=== PATIENT | female | born 1975 | race Caucasian/White ===

== ENCOUNTER 2019-02-08 14:59 | Observation (INO) | payer SELFPAY ==
[2019-02-08 15:46] LABS: BASOPHILS # (AUTO) 0.1 10^3/uL (0.0-0.1); BASOPHILS % (AUTO) 0.8 %; EOSINOPHILS % (AUTO) 0.3 %; HGB - HEMOGLOBIN 11.6 g/dL (12.0-16.0); LYMPHOCYTES # (AUTO) 0.8 10^3/uL (1.5-3.5); LYMPHOCYTES % (AUTO) 12.3 %; MEAN CORPUSCULAR HGB CONC 30.4 g/dL (32.0-36.0); MEAN CORPUSCULAR VOLUME 88.6 fL (81.0-99.0); MEAN PLATELET VOLUME 8.9 fL (7.9-10.8); MONOCYTES # (AUTO) 0.7 10^3/uL (0.0-1.0); MONOCYTES % (AUTO) 10.4 %; NEUTROPHILS # (AUTO) 4.9 10^3/uL (1.5-6.6); NEUTROPHILS % (AUTO) 75.7 %; PLT - PLATELET COUNT 225 10^3/uL (130-450); RED CELL DISTRIBUTION WIDTH 15.3 % (12.0-15.0); WHITE BLOOD COUNT 6.4 x10^3/uL (4.8-10.8)
[2019-02-08 15:58] LABS: ALBUMIN 4.5 g/dL (3.2-5.5); ALBUMIN/GLOBULIN RATIO 1.3 (1.0-2.2); BILIRUBIN,TOTAL 1.3 mg/dL (0.2-1.0); CALCIUM 9.4 mg/dL (8.5-10.3); CREATININE 0.6 mg/dL (0.4-1.0)
[2019-02-08 16:01] LABS: MUDS CUTOFF CONCENTRATIONS CUTOFF CONC BELOW:
[2019-02-08 16:03] LABS: GLUCOSE, URINE (UA) NEGATIVE (NEGATIVE); KETONES,URINE (UA) >=80 mg/dL (NEGATIVE); LEUKOCYTE ESTERASE, URINE NEGATIVE (NEGATIVE); NITRITE,URINE NEGATIVE (NEGATIVE); OCCULT BLOOD,URINE SMALL (NEGATIVE); PROTEIN,URINE 100 mg/dL (NEGATIVE); UROBILINOGEN,URINE 1 (NORMAL) E.U./dL (NORMAL)
[2019-02-08 16:09] LABS: BILIRUBIN,URINE NEGATIVE (NEGATIVE); CLARITY,URINE HAZY (CLEAR); ICTOTEST,URINE NEGATIVE
[2019-02-08 16:10] LABS: HCG UR QUAL NEGATIVE
[2019-02-08 16:15] LABS: AMPHETAMINE SCREEN,URINE NEGATIVE (NEGATIVE); BACTERIA,URINE Few /HPF (None Seen); BENZODIAZEPINES SCREEN, URINE NEGATIVE (NEGATIVE); COCAINE SCREEN URINE NEGATIVE (NEGATIVE); METHADONE SCREEN, URINE NEGATIVE (NEGATIVE); METHAMPHETAMINES SCREEN, URINE NEGATIVE (NEGATIVE); MUCUS,URINE Moderate Strands; OPIATE SCREEN, URINE NEGATIVE (NEGATIVE); OXYCODONE SCREEN, URINE NEGATIVE (NEGATIVE); PROPOXYPHENE SCREEN, URINE NEGATIVE (NEGATIVE); SQUAMOUS EPITHELIAL CELL,UR MOD Squamous (<= Few); TRICYCLIC ANTIDEPRESSANT,URINE NEGATIVE (NEGATIVE)
[2019-02-08] MEDS ORDERED: SODIUM CHLORIDE 0.9% 1,000 ML IV ONE (16:15)
--- NOTE | 2019-02-08 16:15 | ED Physician Documentation ---
PD HPI ABD PAIN - Stated complaint Stated Complaint: LOSS OF APPETITE - Chief complaint Chief Complaint: Abd Pain - History obtained from History obtained from: Patient - History of Present Illness Timing - onset: Other (44yo woman with H/O gastric bypass in 2004 with 5 days of vomiting. Feels like everything she eats comes right back up. No nausea. No diarrhea or constipation but BMs are small with decreased flatus.) Review of Systems Ten Systems: 10 systems reviewed and negative Constitutional: denies: Fever, Chills Respiratory: denies: Dyspnea, Cough GI: reports: Nausea. 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 HEENT: Tonsil/Adenoidectomy - Present Medications Home Medications: Ambulatory Orders Medication Instructions Recorded Confirmed Ferrous Fumarate [Iron] 0 07/12/13 07/12/13 Promethazine [Phenergan] 25 - 50 mg PO Q6H PRN #10 tab 07/12/13 - Allergies Allergies/Adverse Reactions: Allergies Allergy/AdvReac Type Severity Reaction Status Date / Time No Known Drug Allergies Allergy Verified 07/12/13 03:17 - Social History Does the pt smoke?: No Smoking Status: Never smoker Does the pt drink ETOH?: No Does the pt have substance abuse?: No - Immunizations Immunizations are current?: Yes PD ED PE NORMAL - Vitals Vital signs reviewed: Yes - General General: Alert and oriented X 3, No acute distress - HEENT HEENT: PERRL, EOMI - Neck Neck: Supple, no meningeal sign, No bony TTP - Cardiac Cardiac: RRR, No murmur - Respiratory Respiratory: No respiratory distress, Clear bilaterally - Abdomen Abdomen: Soft, Non tender - Back Back: No CVA TTP, No spinal TTP - Derm Derm: Normal color, Warm and dry - Extremities Extremities: No edema, No calf tenderness / cord - Neuro Neuro: Alert and oriented X 3, Normal speech Results - Vitals Vitals: Vital Signs - 24 hr 02/08/19 02/08/19 15:06 16:56 Temperature 36.8 C Heart Rate 87 84 Respiratory 18 18 Rate Blood Pressure 149/94 H 174/91 H O2 Saturation 99 100 Oxygen O2 Source Room air - Labs Labs: Laboratory Tests 02/08/19 02/08/19 02/08/19 15:40 15:40 16:00 WBC 6.4 RBC 4.30 Hgb 11.6 L Hct 38.1 MCV 88.6 MCH 27.0 MCHC 30.4 L RDW 15.3 H Plt Count 225 MPV 8.9 Neut # (Auto) 4.9 Lymph # (Auto) 0.8 L [place] # (Auto) 0.7 Eos # (Auto) 0.0 Baso # (Auto) 0.1 Absolute Nucleated RBC 0.00 Nucleated RBC % 0.0 Sodium 141 Potassium 4.2 Chloride 108 Carbon Dioxide 18 L Anion Gap 15.0 H BUN 12 Creatinine 0.6 Estimated GFR (MDRD) 108 Glucose 101 H Calcium 9.4 Total Bilirubin 1.3 H AST 23 ALT 19 Alkaline Phosphatase 69 Total Protein 8.0 Albumin 4.5 Globulin 3.5 Albumin/Globulin Ratio 1.3 Lipase 24 Urine Color YELLOW Urine Clarity HAZY Urine pH 6.0 Ur Specific [place] >=1.030 H Urine Protein 100 H Urine Glucose (UA) NEGATIVE Urine Ketones >=80 H Urine Occult Blood SMALL H Urine Nitrite NEGATIVE Urine Bilirubin NEGATIVE Urine Urobilinogen 1 (NORMAL) Ur Leukocyte Esterase NEGATIVE Urine RBC 6-10 H Urine WBC 0-3 Ur Squamous Epith Cells MOD Squamous H Urine Bacteria Few Urine Mucus Moderate Strands Ur Microscopic Review INDICATED Urine Culture Comments NOT INDICATED Urine HCG, Qual Urine Opiates Screen NEGATIVE Ur Oxycodone Screen NEGATIVE Urine Methadone Screen NEGATIVE Ur Propoxyphene Screen NEGATIVE Ur Barbiturates Screen NEGATIVE Ur Tricyclics Screen NEGATIVE Ur Phencyclidine Scrn NEGATIVE Ur Amphetamine Screen NEGATIVE U Methamphetamines Scrn NEGATIVE U Benzodiazepines Scrn NEGATIVE Urine Cocaine Screen NEGATIVE U Cannabinoids Screen NEGATIVE 02/08/19 16:00 WBC RBC Hgb Hct MCV MCH MCHC RDW Plt Count MPV Neut # (Auto) Lymph # (Auto) [place] # (Auto) Eos # (Auto) Baso # (Auto) Absolute Nucleated RBC Nucleated RBC % Sodium Potassium Chloride Carbon Dioxide Anion Gap BUN Creatinine Estimated GFR (MDRD) Glucose Calcium Total Bilirubin AST ALT Alkaline Phosphatase Total Protein Albumin Globulin Albumin/Globulin Ratio Lipase Urine Color Urine Clarity Urine pH Ur Specific [place] >=1.030 H Urine Protein Urine Glucose (UA) Urine Ketones Urine Occult Blood Urine Nitrite Urine Bilirubin Urine Urobilinogen Ur Leukocyte Esterase Urine RBC Urine WBC Ur Squamous Epith Cells Urine Bacteria Urine Mucus Ur Microscopic Review Urine Culture Comments Urine HCG, Qual NEGATIVE Urine Opiates Screen Ur Oxycodone Screen Urine Methadone Screen Ur Propoxyphene Screen Ur Barbiturates Screen Ur Tricyclics Screen Ur Phencyclidine Scrn Ur Amphetamine Screen U Methamphetamines Scrn U Benzodiazepines Scrn Urine Cocaine Screen U Cannabinoids Screen - Rads (name of study) CT A/P Radiology: EMP read contemporaneously (Right ovarian cyst, intraluminal esophageal distal foreign body or lesion.) PD MEDICAL DECISION MAKING - ED course ED course: 44-year-old woman status post remote gastric bypass presents with intractable vomiting, but it is without associated nausea or pain. She appeared well and had a normal exam until he had her start drinking contrast for CT which point she really could not tolerate even a small amount of oral contrast and was throwing up in a pattern most consistent with a person who had an esophageal food impaction. CT as shown, concerning for some sort of obstructive lesion of the esophagus. She was given IV fluids and I spoke with the on-call surgeon, Dr. Woodard at 5:55 PM who will scope her tomorrow. Departure - Departure Disposition: ED Place in Observation Clinical Impression: Dehydration Condition: Stable
[2019-02-08] MEDS ORDERED: IOVERSOL 320 100 ML VIAL IVP ONE ×2 (16:29→17:29)
[2019-02-08] MEDS ORDERED: IOVERSOL 320 50 ML VIAL ONE (16:29)
[2019-02-08] MEDS ORDERED: METOCLOPRAMIDE 10 MG/2 ML VIAL IVP STA (16:47)
[2019-02-08] MEDS ORDERED: METOCLOPRAMIDE 10 MG/2 ML VIAL ONE (16:57)
[2019-02-08] MEDS ORDERED: ONDANSETRON 4 MG/2 ML VIAL IVP STA (17:01)
--- NOTE | 2019-02-08 17:49 | CT Report ---
Reason: IV and PO, vomiting, post remote gastric bypass Procedure Date: 02/08/2019 Accession Number: [id number] / [id number] Procedure: CT - Abdomen/Pelvis W CPT Code: FULL RESULT: EXAM: CT ABDOMEN AND PELVIS EXAM DATE: 02/08/2019 05:27 PM. CLINICAL HISTORY: IV and PO, vomiting, post remote gastric bypass. COMPARISONS: None. TECHNIQUE: Routine helical CT imaging was performed through the abdomen and pelvis. IV contrast: OPTI 320 90ML. Enteric contrast: No. Reconstructions: Coronal and sagittal. In accordance with CT protocol optimization, one or more of the following dose reduction techniques were utilized for this exam: automated exposure control, adjustment of mA and/or KV based on patient size, or use of iterative reconstructive technique. FINDINGS: Lung Bases: There is a rounded peripherally calcified focus in distal intrathoracic esophagus measuring 1.7 cm, postsurgical versus intraluminal foreign body. To be correlated clinically and endoscopy if further assessment required. Alternatively this could also represent an intraluminal mass lesion with peripheral oral contrast. Liver: Normal. No masses. Gallbladder/Bile Ducts: Unremarkable. Spleen: Normal. Pancreas: Normal. Adrenal Glands: Normal. Kidneys: Normal. No masses or hydronephrosis. Peritoneal Cavity/Bowel: Normal. No free fluid, free air or adenopathy. No masses or acute inflammatory process. The appendix is well visualized and normal. Pelvic Organs: Normal. The bladder and visualized pelvic organs are within normal limits. Hypodense lesions in the right ovary measuring 1.7 and 2 cm, likely physiological cysts. Vasculature: No aneurysms or other significant abnormality. Bones: No significant abnormality. Other: None. IMPRESSION: A Rounded peripherally calcified focus in distal intrathoracic esophagus measuring 1.7 cm, postsurgical versus intraluminal foreign body. To be correlated clinically and endoscopy if further assessment required. Alternatively this could also represent an intraluminal mass lesion with peripheral oral contrast. No bowel obstruction or inflammation. Normal appendix. Physiological cysts in right ovary measuring up to 1.7 cm. RADIA
[2019-02-08] MEDS ORDERED: DEXTROSE 5%-LACTATED RINGERS 1,000 ML IV SCH (18:00)
[2019-02-08] MEDS ORDERED: HYDROmorphone 1 MG/ML CARPUJECT IVP PRN (18:16)
[2019-02-08] MEDS ORDERED: PROMETHAZINE 25 MG/1 ML VIAL IM PRN (18:16)
[2019-02-08] MEDS ORDERED: SODIUM CHLORIDE FLUSH 0.9% 10 ML SYRINGE IVP PRN (18:16)
[2019-02-08] MEDS ORDERED: ONDANSETRON 4 MG/2 ML VIAL IVP PRN (18:16)
[2019-02-08 18:41] LABS: INR 1.2 (0.8-1.2); PT - PROTHROMBIN TIME 13.1 secs (9.9-12.6)
--- NOTE | 2019-02-08 19:45 | HISTORY & PHYSICAL EXAMINATION ---
Chief Complaint - Chief Complaint Chief Complaint: Vomiting History of Present Illness - Admitted From Admitted From:: Home - History Obtained From Records Reviewed: Yes History obtained from: Patient - History of Present Illness HPI Comment/Other: This is a 44 year old female with a past medical history significant for gastric bypass surgery in 2004 who presents from home complaining of emesis for the past five days. She reports being unable to keep down liquids or solid food over this period of time. Whenever she tries to eat/drink something, she vomits it up right away. Prior to this first occurring, she was eating and drinking without problems. She does not recall consuming anything that may have potentially obstructed her esophagus. She reports no fevers, chills, chest, dyspnea, GERD, odynophagia. She does not feel nauseous and is able to pass gas and have bowel movements. She decided to come in today as she has not been improving at home. She reports having an EGD completed when she was child but she can not recall where it was done. She believes it was done because something had obstructed her esophagus. In the emergency department, her vitals and labs were relatively unremarkable. She was unable to keep down food/liquids in the ED. She underwent a CT of the abdomen/pelvis but was also unable to keep down the oral contrast. The CT was concerning for a 1.7cm foreign body in the distal esophagus. The patient will be admitted under observation status for an EGD. 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 Her father's side does have a history of diabetes. This includes her paternal grandfather. She reports an uncle on her mothers side having lung cancer. Living arrangement: At home Social History Notes: She has lived on [facility] since 2005. She currently works two jobs. She does not smoke, consume alcohol, or use illicit drugs. - Substance History Use: Uses substance without health or social issues: NONE - POLST Patient has POLST: No Meds/Allgy - Home Medications Home Medications: Ambulatory Orders Medication Instructions Recorded Confirmed Ferrous Fumarate [Iron] 0 07/12/13 07/12/13 Promethazine [Phenergan] 25 - 50 mg PO Q6H PRN #10 tab 07/12/13 - Allergies Allergies/Adverse Reactions: Allergies Allergy/AdvReac Type Severity Reaction Status Date / Time No Known Drug Allergies Allergy Verified 07/12/13 03:17 Review of Systems - Constitutional Constitutional: denies: Fatigue, Fever, Chills, Weakness, Poor appetite - Cardiovascular Cariovascular: denies: Chest pain, Edema - Respiratory Respiratory: denies: SOB at rest, SOB with exertion - Gastrointestinal Gastrointestinal: reports: Vomiting. denies: Abdominal pain, Constipation, Diarrhea, Nausea, Reflux/heartburn, Bloating, Poor appetite - Genitourinary Genitourinary: denies: Dysuria, Frequency, Urgency, Hematuria - Musculoskeletal Musculoskeletal: denies: Back pain - Integumentary Integumentary: denies: Rash - Neurological Neurological: denies: General weakness, Focal weakness - All Other Systems All Other Systems: reports: Reviewed and negative Prior Level of Functionality: Independent with ADL's. Exam - Vital Signs Reviewed Vital Signs: Yes Vital Signs: Vital Signs x48h Temp Pulse Pulse Resp BP BP Pulse Ox 02/08/19 19:01 36.6 C 74 18 132/7 H 99 02/08/19 18:33 89 16 139/83 H 96 02/08/19 16:56 84 18 174/91 H 100 02/08/19 15:06 36.8 C 87 18 149/94 H 99 - Physical Exam General Appearance: positive: No acute distress, Alert Eyes Bilateral: positive: Normal inspection ENT: positive: ENT inspection nml, No signs of dehydration. negative: Pharyngeal erythema, Dry mucous membranes Neck: positive: Nml inspection Respiratory: positive: Chest non-tender, No respiratory distress, Breath sounds nml. negative: Wheezes, Rales, Rhonchi Cardiovascular: positive: Regular rate & rhythm, Systolic murmur. negative: Tachycardia, Bradycardia Abdomen: positive: Nml bowel sounds. negative: Non-tender, No distention, Tenderness, Guarding, Rebound Back: positive: Nml inspection. negative: CVA tenderness (R), CVA tenderness (L) Skin: positive: Color nml, No rash, Warm, Dry Extremities: positive: Non-tender, No pedal edema. negative: Pedal edema Neurologic/Psychiatric: positive: Oriented x3, Motor nml. negative: Disoriented to person, Disoriented to place, Disoriented to time Conclusion/Plan - Problem List (1) Distal esophageal obstruction due to foreign body Conclusion/Plan: She has now been unable to tolerate PO intake for the last 5 days. Does not appear clinically dehydrated. CT of the abdomen/pelvis revealed distal esophageal obstruction. Suspect this is likely due to foreign body ingestion although a mass cannot be ruled out. - Protonix IV - Zofran and Phenergan PRN - Dialudid PRN - IV hydration - NPO for EGD tomorrow with General Surgery - Suspect that she will be able to be discharged tomorrow after the EGD (2) History of gastric bypass Conclusion/Plan: She has a history of gastric bypass surgery back in 2004 in [place]. Currently not taking any multivitamins/supplements. She does not appear to have obvious nutritional deficiencies although she does have a mild normocytic anemia. Stable. - She will need outpatient follow up for postsurgical screening of nutrient deficiencies (3) Cardiac murmur Conclusion/Plan: She does have a systolic murmur on exam which she tells me she is aware of and has been worked up in the past. Stable. - Outpatient follow up - Lab Results Lab results reviewed: Yes Fish Bones: 02/08/19 15:40 02/08/19 15:40 - Diagnostic Imaging Results Diagnostic Imaging Results: positive: Final report reviewed Core Measures - Anticipated LOS I expect patient to be DC'd or transferred within 96 hours.: Yes - Issues Hospital Issues and Management Plan: Foreign body ingestion. Will require EGD. Unable to tolerate PO. - DVT/VTE - Prophylaxis VTE/DVT Device ordered at admit?: Yes VTE/DVT Prophylaxis med ordered at admit?: No
[2019-02-08] MEDS: SODIUM CHLORIDE 0.9% 1,000 ML IV SCH (20:01)
[2019-02-08] MEDS: PANTOPRAZOLE 40 MG VIAL IVP SCH (20:13)
[2019-02-08] MEDS: SODIUM CHLORIDE FLUSH 0.9% 10 ML SYRINGE IVP SCH (20:14)
[2019-02-09] MEDS: SODIUM CHLORIDE 0.9% 1,000 ML IV SCH (05:20)
[2019-02-09 05:36] LABS: CALCIUM 8.4 mg/dL (8.5-10.3); CREATININE 0.4 mg/dL (0.4-1.0)
[2019-02-09] MEDS: PANTOPRAZOLE 40 MG VIAL IVP SCH (06:13)
[2019-02-09] MEDS ORDERED: POLYETHYLENE GLYCOL 3350 17 GM PACKET PO SCH (09:00)
[2019-02-09] MEDS: SODIUM CHLORIDE FLUSH 0.9% 10 ML SYRINGE IVP SCH (09:11)
--- NOTE | 2019-02-09 12:41 | ANESTHESIA ---
Pre-Anesthesia VS, & Labs - Diagnosis foreign body in esophagus - Procedure EGD, removal of foreign body Vital Signs: Temp Pulse Resp BP Pulse Ox 36.7 C 66 18 114/71 100 02/09/19 08:37 02/09/19 08:37 02/09/19 08:37 02/09/19 08:37 02/09/19 08:37 Height 4 ft 11 in Weight (kg) 80 kg Body Mass Index 35.6 - NPO >8 hours - Is Patient ?: No - Lab Results Current Lab Results: Laboratory Tests 02/09/19 05:15: Sodium 141, Potassium 3.5, Chloride 111, Carbon Dioxide 19 L, Anion Gap 11.0, BUN 7, Creatinine 0.4, Estimated GFR (MDRD) 172, Glucose 84, Calcium 8.4 L 02/08/19 16:00: Urine Opiates Screen NEGATIVE, Ur Oxycodone Screen NEGATIVE, Urine Methadone Screen NEGATIVE, Ur Propoxyphene Screen NEGATIVE, Ur Barbiturates Screen NEGATIVE, Ur Tricyclics Screen NEGATIVE, Ur Phencyclidine Scrn NEGATIVE, Ur Amphetamine Screen NEGATIVE, U Methamphetamines Scrn NEGATIVE, U Benzodiazepines Scrn NEGATIVE, Urine Cocaine Screen NEGATIVE, U Cannabinoids Screen NEGATIVE 02/08/19 15:40: PT 13.1 H, INR 1.2 02/08/19 15:40: Sodium 141, Potassium 4.2, Chloride 108, Carbon Dioxide 18 L, Anion Gap 15.0 H, BUN 12, Creatinine 0.6, Estimated GFR (MDRD) 108, Glucose 101 H, Calcium 9.4, Total Bilirubin 1.3 H, AST 23, ALT 19, Alkaline Phosphatase 69, Total Protein 8.0, Albumin 4.5, Globulin 3.5, Albumin/Globulin Ratio 1.3, Lipase 24 02/08/19 15:40: WBC 6.4, RBC 4.30, Hgb 11.6 L, Hct 38.1, MCV 88.6, MCH 27.0, MCHC 30.4 L, RDW 15.3 H, Plt Count 225, MPV 8.9, Neut # (Auto) 4.9, Lymph # (Auto) 0.8 L, [place] # (Auto) 0.7, Eos # (Auto) 0.0, Baso # (Auto) 0.1, Absolute Nucleated RBC 0.00, Nucleated RBC % 0.0 Fish Bones: 02/08/19 15:40 02/09/19 05:15 Home Medications and Allergies Home Medications: Ambulatory Orders No Known Home Medications 02/09/19 Active Medications Hydromorphone HCl (Dilaudid Inj Carp) 1 mg IVP Q2HR PRN PRN Reason: Pain 8 to 10 Sodium Chloride (Normal Saline 0.9%) 1,000 mls @ 100 mls/hr IV .Q10H [facility] Last Admin: 02/09/19 05:20 Dose: 100 mls/hr Ondansetron HCl (Zofran Inj) 4 mg IVP Q6HR PRN PRN Reason: Nausea / Vomiting Pantoprazole Sodium (Protonix) 40 mg IVP QDAC [facility] Last Admin: 02/09/19 06:13 Dose: 40 mg Polyethylene Glycol (Miralax) 17 gm PO DAILY [facility] Last Admin: 02/09/19 09:35 Dose: Not Given Promethazine HCl (Phenergan Inj) 25 mg IM Q6HR PRN PRN Reason: Nausea / Vomiting Sodium Chloride (Normal Saline Flush 0.9%) 10 ml IVP PRN PRN PRN Reason: NEEDED PER PROVIDER ORDERS Last Admin: 02/09/19 06:13 Dose: 10 ml Sodium Chloride (Normal Saline Flush 0.9%) 10 ml IVP 0100,0900,1700 [facility] Last Admin: 02/09/19 09:11 Dose: Not Given No Known Home Medications 02/09/19 Allergies/Adverse Reactions: Allergies Allergy/AdvReac Type Severity Reaction Status Date / Time No Known Drug Allergies Allergy Verified 07/12/13 03:17 Anes History & Medical History - Anesthetic History Anesthesia Complications: reports: No previous complications - Medical History Cardiovascular: reports: None Pulmonary: reports: None Gastrointestinal: reports: None, Other (History of gastric bypass surgery) Urinary: reports: None Neuro: reports: None Musculoskeletal: reports: None Endocrine/Autoimmune: reports: None Blood Disorders: reports: None Skin: reports: None Smoking Status: Never smoker Other Past Medical History: esophageal strictures - Surgical History General: Gastric surgery Eyes Ears Nose Throat (EENT): Tonsil/Adenoidectomy Gynecologic: section Exam General: Alert Dental: WNL, Poor dentition, Other (two bottom missing) Mouth Opening: Greater than 4 Fingerbreadths Mallampati classification: II Thyromental Distance: greater than 6 cm Respiratory: Lungs clear Cardiovascular: Regular rate Mental/Cognitive Status: Alert/Oriented X3 Cognitive Status: Within normal limits Plan Anesthesia Type: General, MAC Consent for Procedure(s) Verified and Reviewed: Yes Code Status: Attempt Resuscitation ASA classification: 2-Mild systemic disease Is this case an emergency?: Yes
[2019-02-09] MEDS ORDERED: fentaNYL 100 MCG/2 ML VIAL IVP ONE (13:33)
[2019-02-09] MEDS ORDERED: PROPOFOL 200 MG/20 ML VIAL IVP ONE (13:33)
[2019-02-09] MEDS ORDERED: MIDAZOLAM 2 MG/2 ML VIAL IVP ONE (13:33)
[2019-02-09] MEDS ORDERED: LIDOCAINE-MPF 2% 5 ML VIAL IM ONE (13:33)
--- NOTE | 2019-02-09 13:33 | CONSULTATION NOTE ---
Referring Provider Name of Referring Provider:: Dr. Gorman Consult Date: 02/09/19 Chief Complaint - Chief Complaint Chief Complaint: dysphagia History of Present Illness - Admitted From Admitted From:: ER - History Obtained From Records Reviewed: yes History obtained from: pt, records Exam Limitations: none - History of Present Illness HPI Comment/Other: 44 yo female with onset 5 days ago of odynophagia and dysphagia, with inability to keep food or liquids down, with regurgitation of ingested food. She reports that 6 days ago while eating her evening meal (type of food pt can not recall) she sneezed while chewing/swallowing and she believes that may have precipitated the current sx. She presented to the ER yesterday evening when sx failed to resolve. She denies abdominal pain, change in bowel habits, melena, hematochezia, wt loss, fever, chills, respiratory sx. She points to the lower sternum as the area of discomfort. She reports a prior episode as a child requiring endosocopic removal of impacted chicken, but no other similar sx since. She notes no heartburn, dysphagia, ingestion, abd pain chronically. Neg FH GI tumors. She is s/p gastric bypass in 2004. Evaluation in ER yesterday evening was notable for a CT of abd/pelvis showing a 1.7 cm soft tissue density foreign body in the distal esophagus and a nl post gastric bypass anatomy. She was admitted for hydration and GI consultation. She reports no regurgitation of saliva since last night, but persistent lower sternal discomfort. 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 Her father's side does have a history of diabetes. This includes her paternal grandfather. She reports an uncle on her mothers side having lung cancer. Neg FH GI tumors. Living arrangement: At home Social History Notes: She has lived on [facility] since 2005. She currently works two jobs. She does not smoke, consume alcohol, or use illicit drugs. - Substance History Use: Uses substance without health or social issues: NONE - POLST Patient has POLST: No Meds/Allgy - Home Medications Home Medications: Ambulatory Orders Medication Instructions Recorded Confirmed No Known Home Medications 02/09/19 02/09/19 - Allergies Allergies/Adverse Reactions: Allergies Allergy/AdvReac Type Severity Reaction Status Date / Time No Known Drug Allergies Allergy Verified 07/12/13 03:17 Review of Systems - Constitutional Constitutional: denies: Fever, Chills, Weight gain, Weight loss - Gastrointestinal Gastrointestinal: denies: Abdominal pain, Abdominal distention, Constipation, Diarrhea, Change in bowel habits, Rectal bleeding, Black stools, Bloody stools, Nausea, Bile emesis, Krishan blood emesis, Coffee grounds emesis, Reflux/heartburn, Bloating - Hematologic/Lymphatic Hematologic/Lymphatic: denies: Blood clots, Bleeding tendencies - All Other Systems All Other Systems: reports: Reviewed and negative Exam - Vital Signs Reviewed Vital Signs: Yes Vital Signs: Vital Signs x48h Temp Pulse Resp BP Pulse Ox 02/09/19 08:37 36.7 C 66 18 114/71 100 - Physical Exam General Appearance: positive: No acute distress, Alert ENT: positive: ENT inspection nml, Dry mucous membranes, Other (poor dentition) Neck: positive: Nml inspection, Thyroid nml, No JVD, Trachea midline. negative: Thyromegaly, Lymphadenopathy (R), Lymphadenopathy (L) Respiratory: positive: Chest non-tender, No respiratory distress, Breath sounds nml. negative: Wheezes, Rales, Rhonchi Cardiovascular: positive: Regular rate & rhythm, No gallop, Systolic murmur Abdomen: positive: Non-tender, No organomegaly, Nml bowel sounds, No distention. negative: Guarding, Rebound, Hepatomegaly, Splenomegaly, Mass Skin: positive: Color nml, No rash, Warm, Dry. negative: Cyanosis Extremities: positive: No pedal edema. negative: Calf tenderness Neurologic/Psychiatric: positive: Oriented x3 Conclusion/Plan - Diagnosis Diagnosis: Food bolus foreign body obstruction of esophagus in pt with hx g astric bypass. Clinically she may have passed the body overnight. She has mild volume dehydration. - Plan Plan: To OR for EGD, removal of foreign body, possible biopsy or dilatation. Detailed PAR conf with pt and consent obtained. Thanks, - Lab Results Lab results reviewed: Yes Fish Bones: 02/08/19 15:40 02/09/19 05:15 - Diagnostic Imaging Results Diagnostic Imaging Results: positive: Final report reviewed, Read independently Diagnostic Imaging Results Comments: See HPI.
[2019-02-09] MEDS ORDERED: LIDO GARGLE 30 ML BOTTLE PO ONE (13:41)
[2019-02-09] MEDS ORDERED: LIDO GARGLE 30 ML BOTTLE ONE (13:42)
[2019-02-09] MEDS ORDERED: LACTATED RINGERS 1,000 ML IV ONE ×2 (13:43→13:59)
--- NOTE | 2019-02-09 16:01 | DISCHARGE SUMMARY ---
"Discharge Summary Admit Date: 02/08/19 Discharge Date: 02/09/19 Discharging Provider: Edelmira Rojo MD Primary Care Provider: Lila Woodard MD Code Status: Attempt Resuscitation Condition at Discharge: Stable Discharge Disposition: 01 Home, Self Care - DIAGNOSES Discharge Diagnoses with Status of Each Condition: 1. Unspecified foreign body in the esophagus esophagus causing obstruction 2. History of bariatric surgery 3. history of cardiac murmur - HPI History of Present Illness: HPI Comment/Other: This is a 44 year old female with a past medical history significant for gastric bypass surgery in 2004 who presents from home complaining of emesis for the past five days. She reports being unable to keep down liquids or solid food over this period of time. Whenever she tries to eat/drink something, she vomits it up right away. Prior to this first occurring, she was eating and drinking without problems. She does not recall consuming anything that may have potentially obstructed her esophagus. She reports no fevers, chills, chest, dyspnea, GERD, odynophagia. She does not feel nauseous and is able to pass gas and have bowel movements. She decided to come in today as she has not been improving at home. She reports having an EGD completed when she was child but she can not recall where it was done. She believes it was done because something had obstructed her esophagus. In the emergency department, her vitals and labs were relatively unremarkable. She was unable to keep down food/liquids in the ED. She underwent a CT of the abdomen/pelvis but was also unable to keep down the oral contrast. The CT was concerning for a 1.7cm foreign body in the distal esophagus. The patient will be admitted under observation status for an EGD. History - Past Medical History Cardiovascular: reports: None Respiratory: reports: None Neuro: reports: None Endocrine/Autoimmune: reports: None GI: reports: None, Other (History of gastric bypass surgery) SCRUMMASTER: reports: None : reports: None HEENT: reports: None Psych: reports: None Musculoskeletal: reports: None Derm: reports: None MRSA Hx?: No Other Past Medical History: esophageal strictures - CONSULTS | PROCEDURES Consultations: Dr. Shahab Guadarrama, general surgery Procedures: 1. abdomen pelvis CT. A rounded peripherally calcified focus in the distal intrathoracic esophagus measuring 1.7 cm, postsurgical versus intraluminal foreign body. 2. EGD done by Dr. Guadarrama February 09 without any foreign body seen. - HOSPITAL COURSE Hospital Course: She was placed in observation. Overnight no further episodes of emesis she was kept n.p.o. She was hydrated, nausea controlled with Zofran. In the morning she underwent an EGD that was uneventful with Dr. Guadarrama. The foreign body seen on CT was not seen. As such we feel she may have passed whenever object was there. She may return to full duties. No work restrictions. We have asked her not to drive for the next day since she received sedatives during her surgery. Temperature 37.6 pulse is 82 blood pressure 148/85 respirations 2200% on room air. Lungs are clear, regular rate and rhythm. Abdomen is soft and nontender. She is tolerating liquids at this time. She is asked to see Dr. Guadarrama in follow-up in the next 1 to 2 weeks. He has filled out discharge instructions on a separate dictation. - ALLERGIES Allergies/Adverse Reactions: Allergies Allergy/AdvReac Type Severity Reaction Status Date / Time No Known Drug Allergies Allergy Verified 07/12/13 03:17 - MEDICATIONS Home Medications: Ambulatory Orders Medication Instructions Recorded Confirmed No Known Home Medications 02/09/19 02/09/19 - LABS Result Diagrams: 02/08/19 15:40 02/09/19 05:15"
[2019-02-09 16:47] VITALS: BP 134/71
== END 2019-02-09 15:50 | disposition home or self-care (01) ==
LOC: ED 14:59 → MS2 18:16
PROVIDERS: ADMIT Internal Medicine; ATTEND Specialist
PROC: 0DB38ZX Excision of Lower Esophagus, Via Natural or Artificial Opening Endoscopic, Diagnostic (ICD-10-PCS; principal; 2019-02-09 16:30)
DX: T18.128A Food in esophagus causing other injury, initial encounter (principal); K22.10 Ulcer of esophagus without bleeding; E86.0 Dehydration; R11.10 Vomiting, unspecified; D64.9 Anemia, unspecified; R01.1 Cardiac murmur, unspecified; Z98.84 Bariatric surgery status; Z87.19 Personal history of other diseases of the digestive system
CPT/HCPCS: 36415; 43239; 74177; 80048; 80053; 81001; 81025; 83690; 85025; 85610; 96361; 96374; 96375; 99284; 99285; A9270; G0378; J2765; J7120; Q9967; 80306; 81003; 87086

== ENCOUNTER 2021-01-25 19:44 | Inpatient (IN) | payer MEDICAID ==
[2021-01-25 20:11] LABS: BASOPHILS # (AUTO) 0.1 10^3/uL (0.0-0.1); BASOPHILS % (AUTO) 1.5 %; EOSINOPHILS # (AUTO) 0.1 10^3/uL (0.0-0.7); EOSINOPHILS % (AUTO) 2.4 %; HCT - HEMATOCRIT 26.2 % (37.0-47.0); HGB - HEMOGLOBIN 7.7 g/dL (12.0-16.0); LYMPHOCYTES # (AUTO) 1.1 10^3/uL (1.5-3.5); LYMPHOCYTES % (AUTO) 17.8 %; MEAN CORPUSCULAR HEMOGLOBIN 23.5 pg (27.0-31.0); MEAN CORPUSCULAR HGB CONC 29.4 g/dL (32.0-36.0); MEAN CORPUSCULAR VOLUME 79.9 fL (81.0-99.0); MONOCYTES # (AUTO) 0.6 10^3/uL (0.0-1.0); NEUTROPHILS % (AUTO) 68.1 %; PLT - PLATELET COUNT 176 10^3/uL (130-450); RED BLOOD COUNT 3.28 10^6/uL (4.20-5.40); RED CELL DISTRIBUTION WIDTH 20.2 % (12.0-15.0); WHITE BLOOD COUNT 5.9 x10^3/uL (4.8-10.8)
[2021-01-25 20:12] LABS: BILIRUBIN,URINE NEGATIVE (NEGATIVE); GLUCOSE, URINE (UA) NEGATIVE (NEGATIVE); KETONES,URINE (UA) >=80 mg/dL (NEGATIVE); LEUKOCYTE ESTERASE, URINE NEGATIVE (NEGATIVE); NITRITE,URINE NEGATIVE (NEGATIVE); OCCULT BLOOD,URINE SMALL (NEGATIVE); PROTEIN,URINE NEGATIVE (NEGATIVE); UROBILINOGEN,URINE 1 (NORMAL) E.U./dL (NORMAL)
[2021-01-25 20:14] LABS: CLARITY,URINE HAZY (CLEAR)
[2021-01-25 20:23] LABS: ALBUMIN 3.9 g/dL (3.2-5.5); ALBUMIN/GLOBULIN RATIO 1.2 (1.0-2.2); BILIRUBIN,TOTAL 1.1 mg/dL (0.2-1.0); CALCIUM 8.4 mg/dL (8.5-10.3); CREATININE 0.4 mg/dL (0.4-1.0); POTASSIUM 3.8 mmol/L (3.5-5.0); TOTAL PROTEIN 7.2 g/dL (6.7-8.2)
[2021-01-25 20:26] LABS: BACTERIA,URINE Few /HPF (None Seen); RBC,URINE 0-5 /HPF (0-5); SQUAMOUS EPITHELIAL CELL,UR MOD Squamous (<= Few); WBC,URINE 0-3 /HPF (0-5)
[2021-01-25 20:27] LABS: MUCUS,URINE Few Strands
[2021-01-25] MEDS ORDERED: GLUCAGON 1 MG/ML VIAL IVP STA (20:37)
[2021-01-25] MEDS ORDERED: ONDANSETRON 4 MG/2 ML VIAL IVP STA (20:42)
[2021-01-25] MEDS ORDERED: IOVERSOL 320 100 ML VIAL IVP ONE ×2 (20:42→21:47)
--- NOTE | 2021-01-25 20:42 | ED Physician Documentation ---
History of Present Illness - Stated complaint Stated Complaint: VOMITING - Chief complaint Chief Complaint: Abd Pain - Additonal information Additional information: 46-year-old male presents the emergency department for evaluation of uncontr olled nausea and vomiting. She has a remote history of gastric bypass and reports that this morning when she woke up she has been very nauseated and has been unable to keep anything down. She had a history of similar in 2019 for which she was admitted and had an upper EGD done. Patient reports to me that she is told she has esophageal strictures though she has had no long-term maintenance or management of it. Patient denies abdominal pain or fevers. But she states she is unable to tolerate sips of even water. Review of Systems Constitutional: denies: Fever Eyes: reports: Reviewed and negative Ears: reports: Loss of hearing Nose: reports: Reviewed and negative Throat: reports: Reviewed and negative Cardiac: reports: Reviewed and negative Respiratory: reports: Reviewed and negative GI: reports: Nausea, Vomiting. 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 : None HEENT: None Psych: None Musculoskeletal: None Derm: None - Past Surgical History Past Surgical History: Yes General: Gastric surgery (gastric bypass 2004), EGD (as child with removal of food bolus foreign body) /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 HEENT: Myringotomy (tubes), Tonsil/Adenoidectomy - Present Medications Home Medications: Ambulatory Orders Medication Instructions Recorded Confirmed No Known Home Medications 02/09/19 02/09/19 - Allergies Allergies/Adverse Reactions: Allergies Allergy/AdvReac Type Severity Reaction Status Date / Time No Known Drug Allergies Allergy Verified 01/25/21 19:51 - Social History Does the pt smoke?: No Smoking Status: Never smoker Does the pt drink ETOH?: No Does the pt have substance abuse?: No - Immunizations Immunizations are current?: Yes - POLST Patient has POLST: No PD ED PE EXPANDED - General General: Alert, No acute distress - Cardiac Cardiac: Regular Rate, Radial strong equal, Pedal strong equal. No: Murmur Present - Respiratory Respiratory: Clear to ausultation karon. No: Distress, Labored - Abdomen Abdomen: Normal Bowel sounds. No: Tender to palpation - Derm Derm: Normal color, Warm and dry - Extremities Extremities: Normal. No: Deformity, Tenderness - Neuro Neuro: Alert and Oriented X 3, CNII-XII intact - GCS Eye Opening: Spontaneous Motor: Obeys Commands Verbal: Oriented Total: 15 Results - Vitals Vitals: Vital Signs - 24 hr 01/25/21 01/25/21 19:48 20:21 Temperature 36.9 C 36.8 C Heart Rate 90 79 Respiratory 18 16 Rate Blood Pressure 143/70 H 118/93 H O2 Saturation 100 98 Oxygen O2 Source Room air - Labs Labs: Laboratory Tests 01/25/21 01/25/21 01/25/21 19:54 20:05 20:05 WBC 5.9 RBC 3.28 L Hgb 7.7 L Hct 26.2 L MCV 79.9 L MCH 23.5 L MCHC 29.4 L RDW 20.2 H Plt Count 176 MPV 10.0 Neut # (Auto) 4.0 Lymph # (Auto) 1.1 L [place] # (Auto) 0.6 Eos # (Auto) 0.1 Baso # (Auto) 0.1 Absolute Nucleated RBC 0.00 Nucleated RBC % 0.0 PT INR Sodium 135 Potassium 3.8 Chloride 101 Carbon Dioxide 25 Anion Gap 9.0 BUN 8 Creatinine 0.4 Estimated GFR (MDRD) 170 Glucose 99 Calcium 8.4 L Total Bilirubin 1.1 H AST 21 ALT 12 Alkaline Phosphatase 63 Total Protein 7.2 Albumin 3.9 Globulin 3.3 Albumin/Globulin Ratio 1.2 Lipase 20 L Urine Color YELLOW Urine Clarity HAZY Urine pH 6.0 Ur Specific [place] >=1.030 H Urine Protein NEGATIVE Urine Glucose (UA) NEGATIVE Urine Ketones >=80 H Urine Occult Blood SMALL H Urine Nitrite NEGATIVE Urine Bilirubin NEGATIVE Urine Urobilinogen 1 (NORMAL) Ur Leukocyte Esterase NEGATIVE Urine RBC 0-5 Urine WBC 0-3 Ur Squamous Epith Cells MOD Squamous H Urine Bacteria Few Urine Mucus Few Strands Ur Microscopic Review INDICATED Urine Culture Comments NOT INDICATED Nasal Adenovirus (PCR) Nasal B. parapertussis DNA (PCR) Nasal Coronavir 229E PCR Nasal Coronavir HKU1 PCR Nasal Coronavir NL63 PCR Nasal Coronavir OC43 PCR Nasal Enterovir/Rhinovir PCR Nasal Influenza B PCR Nasal Influenza A PCR Nasal Parainfluen 1 PCR Nasal Parainfluen 2 PCR Nasal Parainfluen 3 PCR Nasal Parainfluen 4 PCR Nasal RSV (PCR) Nasal B.pertussis DNA PCR Nasal C.pneumoniae (PCR) [place] Human Metapneumo PCR Nasal M.pneumoniae (PCR) Nasal SARS-CoV-2 (PCR) 01/25/21 01/25/21 21:15 21:16 WBC RBC Hgb Hct MCV MCH MCHC RDW Plt Count MPV Neut # (Auto) Lymph # (Auto) [place] # (Auto) Eos # (Auto) Baso # (Auto) Absolute Nucleated RBC Nucleated RBC % PT 12.5 INR 1.1 Sodium Potassium Chloride Carbon Dioxide Anion Gap BUN Creatinine Estimated GFR (MDRD) Glucose Calcium Total Bilirubin AST ALT Alkaline Phosphatase Total Protein Albumin Globulin Albumin/Globulin Ratio Lipase Urine Color Urine Clarity Urine pH Ur Specific [place] Urine Protein Urine Glucose (UA) Urine Ketones Urine Occult Blood Urine Nitrite Urine Bilirubin Urine Urobilinogen Ur Leukocyte Esterase Urine RBC Urine WBC Ur Squamous Epith Cells Urine Bacteria Urine Mucus Ur Microscopic Review Urine Culture Comments Nasal Adenovirus (PCR) NOT DETECTED Nasal B. parapertussis DNA (PCR) NOT DETECTED Nasal Coronavir 229E PCR NOT DETECTED Nasal Coronavir HKU1 PCR NOT DETECTED Nasal Coronavir NL63 PCR NOT DETECTED Nasal Coronavir OC43 PCR NOT DETECTED Nasal Enterovir/Rhinovir PCR NOT DETECTED Nasal Influenza B PCR NOT DETECTED Nasal Influenza A PCR NOT DETECTED Nasal Parainfluen 1 PCR NOT DETECTED Nasal Parainfluen 2 PCR NOT DETECTED Nasal Parainfluen 3 PCR NOT DETECTED Nasal Parainfluen 4 PCR NOT DETECTED Nasal RSV (PCR) NOT DETECTED Nasal B.pertussis DNA PCR NOT DETECTED Nasal C.pneumoniae (PCR) NOT DETECTED [place] Human Metapneumo PCR NOT DETECTED Nasal M.pneumoniae (PCR) NOT DETECTED Nasal SARS-CoV-2 (PCR) NOT DETECTED - Rads (name of study) ct abd/pel Radiology: Final report received, See rad report PD MEDICAL DECISION MAKING - ED course Complexity details: reviewed results, re-evaluated patient, considered differential, d/w multi site leasing consultant (Ta) ED course: 46-year-old female presents emergency department for evaluation of uncontrolled nausea and vomiting. She reports anytime she attempts to drink even small bits of liquids she feels some discomfort in her mid chest and she immediately vomits it up. She is concerned that she could have a return of esophageal stricture. She had a similar presentation in 2019. CT of the abdomen without obvious stricture, however pt was unable to tolerate po contrast thus an esophogram could not be completed Today here in the emergency department she is unable to tolerate sips of clear liquids. I did give her 2 mg of glucagon and she was unable to tolerate the oral contrast. Given history of similar I have called Dr. Chappell who agrees that the patient likely needs an EGD he is asking the hospitalist to admit. I have spoken with Dr. Lindsay and she is agreeable to admit the patient. We did discuss the significant anemia. Tomorrow's scoping may also include a lower colonoscopy. Pt is agreed to admit for observation and further treatment Departure - Departure Disposition: ED Place in Observation Clinical Impression: Vomiting Qualifiers: Vomiting type: unspecified Vomiting Intractability: intractable Nausea presence: with nausea Qualified Code(s): R11.2 - Nausea with vomiting, unspecified Anemia Qualifiers: Anemia type: unspecified type Qualified Code(s): D64.9 - Anemia, unspecified Discharge Date/Time: 01/25/21 22:03
[2021-01-25] MEDS ORDERED: SODIUM CHLORIDE 0.9% 1,000 ML IV STA (20:43)
[2021-01-25] MEDS ORDERED: IOPAMIDOL-300 50 ML VIAL ONE (20:43)
[2021-01-25 21:27] LABS: INR 1.1 (0.8-1.2); PT - PROTHROMBIN TIME 12.5 secs (9.9-12.6)
[2021-01-25] MEDS ORDERED: ONDANSETRON 4 MG/2 ML VIAL IVP PRN (21:40)
[2021-01-25] MEDS ORDERED: PROCHLORPERAZINE 10 MG/2 ML VIAL IVP PRN (21:40)
[2021-01-25] MEDS ORDERED: IOPAMIDOL-300 50 ML VIAL PO ONE (21:49)
--- NOTE | 2021-01-25 21:49 | HISTORY & PHYSICAL EXAMINATION ---
Chief Complaint - Chief Complaint Chief Complaint: N/V History of Present Illness - Admitted From Admitted From:: ED - History Obtained From History obtained from: ED provider and patient - History of Present Illness HPI Comment/Other: This is a 46-year-old white female with a history of heart murmur since , gastric bypass surgery done in 2004, she presented here in 2019 for distal esophageal obstruction with symptoms of nausea and vomiting and when EGD was done then, only an esophageal erosion was found. There is also a remote history of having chicken impacted in her esophagus needing retrieval when she was a young child. The patient presents to the emergency room with complaints of 1 day of lower sternal and epigastric pain, nausea and vomiting, she cannot even keep water down. She says the symptoms are like she had in 2019 requiring the EGD. The patient is being admitted to Observation for IV fluids, antiemetics, follow-up of CBC which is showing a marked anemia and to undergo an EGD, and a possible colonoscopy as well. 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 Her father's side does have a history of diabetes. This includes her paternal grandfather. She reports an uncle on her mothers side having lung cancer. Neg FH GI tumors. Living arrangement: At home Social History Notes: She has lived on [facility] since 2005. She does not smoke, consume alcohol, or use illicit drugs, specifically no Meth. - Substance History Use: Uses substance without health or social issues: NONE - POLST Patient has POLST: No Meds/Allgy - Home Medications Home Medications: Ambulatory Orders Medication Instructions Recorded Confirmed No Known Home Medications 02/09/19 02/09/19 - Allergies Allergies/Adverse Reactions: Allergies Allergy/AdvReac Type Severity Reaction Status Date / Time No Known Drug Allergies Allergy Verified 01/25/21 19:51 Review of Systems - Gastrointestinal Gastrointestinal: reports: Abdominal pain, Nausea, Vomiting - All Other Systems All Other Systems: reports: Reviewed and negative Exam - Vital Signs Vital Signs: Vital Signs x48h Temp Pulse Resp BP Pulse Ox 01/25/21 20:21 36.8 C 79 16 118/93 H 98 01/25/21 19:48 36.9 C 90 18 143/70 H 100 - Physical Exam General Appearance: positive: No acute distress, Alert Eyes Bilateral: positive: Normal inspection, EOMI ENT: positive: No signs of dehydration, Other (Many broken teeth in the lower jaw, upper jaw is edentulous) Neck: positive: Nml inspection, No JVD Respiratory: positive: No respiratory distress, Breath sounds nml Cardiovascular: positive: Regular rate & rhythm, Systolic murmur (3/6 at base) Abdomen: positive: Non-tender (No guarding or rebound), Nml bowel sounds, No distention Skin: positive: Warm, Dry, Pallor Extremities: positive: Non-tender, No pedal edema Neurologic/Psychiatric: positive: Oriented x3 (Non-focal) Conclusion/Plan - Problem List (1) N&V (nausea and vomiting) Conclusion/Plan: She will be started on IV fluids at 125 cc an hour. N.p.o. ordered except sips and chips only Antiemetics will be given as needed Source of the problem will be evaluated with an EGD in the morning (2) Odynophagia Conclusion/Plan: The presentation is similar to 2019 when imaging then showed a distal esophageal obstruction but the EGD in the next day showed just an erosion, presumably the object had passed. The plan is for EGD by general surgery to be done tomorrow. The ED provider already called the general surgeon on-call. (3) Anemia Conclusion/Plan: She has significant Al low hemoglobin at 7.6. The general surgeon may also therefore perform colonoscopy. We will order guaiac of her stools. Order anemia work-up including B12, folate levels and check iron stores. Will start empiric Protonix IV twice daily Will follow her CBC daily, transfuse if hemoglobin is under 7. Qualifiers: Anemia type: unspecified type Qualified Code(s): D64.9 - Anemia, unspecified (4) Cardiac murmur Conclusion/Plan: Clinically this sounds like aortic stenosis and she may have been born with a bicuspid valve. She does not know the exact diagnosis of her murmur unfortunately. She gets echoes every year, she states the last was done just 7 months ago in May 2020 and everything is stable. There is no indication for obtaining an Echocardiogram at this time. (5) History of gastric bypass Conclusion/Plan: As per history. The evaluation in 2019 showed that she had stable anatomy as expected after a gastric bypass. - Lab Results Fish Bones: 01/25/21 20:05 01/25/21 20:05 - Diagnostic Imaging Results Diagnostic Imaging Results: positive: Final report reviewed
--- NOTE | 2021-01-25 22:06 | CT Report ---
PROCEDURE: Abdomen/Pelvis W INDICATIONS: ? esophageal stricture CONTRAST: IV CONTRAST: Optiray 320 ml: 100 PO CONTRAST: *NO PO CONTRAST TECHNIQUE: After the administration of nonionic contrast, 5 mm thick sections acquired from the diaphragms to th e symphysis. 5 mm thick coronal and sagittal reformats were acquired. For radiation dose reduction, the following was used: automated exposure control, adjustment of mA and/or kV according to patient size. COMPARISON: 02/08/2019 CT scanning.. FINDINGS: Image quality: Excellent. ABDOMEN: Lung bases: Lung bases are clear. Heart size is normal. Solid organs: Liver and spleen are normal in size and enhancement. Gallbladder appears normal Bili wendie system is non dilated. Pancreas enhances normally. No adrenal nodules. Kidneys demonstrate nor mal size and enhancement, without hydronephrosis. Peritoneum and bowel: Bowel loops demonstrate normal wall thickness and caliber. No free fluid or a ir. Nodes and vessels: No retroperitoneal or mesenteric adenopathy by size criteria. Aorta and inferior vena cava are normal in size. Miscellaneous: There is a periumbilical ventral eventration with a peritoneal membrane covering the a akbar of eventration, indicating absence of central true hernia as cause of the protuberance of small b owel and colonic loops into the anterior body wall seen on CT series 3 image 53. There is no sign of associated incarceration or strangulation. PELVIS: Genitourinary: Bladder wall thickness is normal. What appeared to be moderate-sized bilateral ovari an cysts are present, measuring up to 8 and 3.6 cm and 3.5 cm on the left at the adnexa. Miscellaneous: No inguinal hernias or adenopathy. Bones: No suspicious bony lesions. No vertebral body compression fractures. IMPRESSION: 1. No sign of esophageal dilatation or mass. No sign of esophageal stricture but please note that the study is optimized for abdomen/pelvis evaluation, not the chest. Dedicated esophagram is recommended if clinically indicated. 2. Relatively large midline periumbilical eventration, containing large and small bowel, without evid ence of incarceration or strangulation. The presence of eventration includes a peritoneal membrane co vering the area of concern, and this does not represent a true hernia with visceral herniation into t he body wall fat. 3. Bilateral moderate and moderately large ovarian/adnexal cystic masses. Suspect that these likely a re benign by appearance, but pelvic ultrasound to assess for further characterization of these struct ures is recommended. There is no evidence of ovarian torsion based on this study. Reviewed by: Raghavendra West MD on 01/25/2021 10:04 PM PDT Approved by: Raghavendra West MD on 01/25/2021 10:04 PM PDT Station ID: [id number]
[2021-01-25 22:10] LABS: B. PARAPERTUSSIS- RESP PCR PAN NOT DETECTED; B. PERTUSSIS- RESP PCR PANEL NOT DETECTED; C. PNEUMONIAE- RESP PCR PANEL NOT DETECTED; CORONAVIRUS 229E-RESP PCR NOT DETECTED; CORONAVIRUS HKU1-RESP PCR NOT DETECTED; CORONAVIRUS NL63-RESP PCR NOT DETECTED; CORONAVIRUS OC43-RESP PCR NOT DETECTED; HUMAN METAPNEUMOVIRUS NOT DETECTED; INFLUENZA A- RESP PCR PANEL NOT DETECTED; INFLUENZA B - RESP PCR PANEL NOT DETECTED; M. PNEUMONIAE- RESP PCR PANEL NOT DETECTED; PARAINFLUENZA VIRUS 1 NOT DETECTED; PARAINFLUENZA VIRUS 2 NOT DETECTED; PARAINFLUENZA VIRUS 3 NOT DETECTED; PARAINFLUENZA VIRUS 4 NOT DETECTED; RHINOVIRUS/ENTEROVIRUS NOT DETECTED; RSV- RESP PCR PANEL NOT DETECTED; SARS-CoV-2 -RESP PCR PANEL NOT DETECTED
[2021-01-25] MEDS: PANTOPRAZOLE 40 MG VIAL IV SCH (22:58)
[2021-01-25] MEDS: D5NS W/20 MEQ KCL 1,000 ML IV SCH (22:58)
[2021-01-25] MEDS: SODIUM CHLORIDE FLUSH 0.9% 10 ML SYRINGE IVP SCH (23:23)
[2021-01-26 05:17] LABS: HCT - HEMATOCRIT 26.5 % (37.0-47.0); HGB - HEMOGLOBIN 7.7 g/dL (12.0-16.0); MEAN CORPUSCULAR HEMOGLOBIN 23.5 pg (27.0-31.0); MEAN CORPUSCULAR HGB CONC 29.1 g/dL (32.0-36.0); MEAN CORPUSCULAR VOLUME 80.8 fL (81.0-99.0); MEAN PLATELET VOLUME 10.8 fL (7.9-10.8); RED BLOOD COUNT 3.28 10^6/uL (4.20-5.40); RED CELL DISTRIBUTION WIDTH 20.4 % (12.0-15.0); WHITE BLOOD COUNT 5.4 x10^3/uL (4.8-10.8)
[2021-01-26 05:33] LABS: CALCIUM 8.2 mg/dL (8.5-10.3); CREATININE 0.4 mg/dL (0.4-1.0); MAGNESIUM 1.9 mg/dL (1.7-2.8); POTASSIUM 3.7 mmol/L (3.5-5.0)
[2021-01-26 05:54] LABS: FOLATE 15.13 ng/mL (5.90 - >24.8)
[2021-01-26] MEDS ORDERED: CYANOCOBALAMIN 1,000 MCG/ML VIAL IM ONE (07:36)
[2021-01-26] MEDS ORDERED: FERROUS GLUCONATE 324 MG TABLET PO SCH (08:00)
[2021-01-26] MEDS: D5NS W/20 MEQ KCL 1,000 ML IV SCH (08:30)
[2021-01-26] MEDS: SODIUM CHLORIDE FLUSH 0.9% 10 ML SYRINGE IVP SCH ×5 (08:36→23:16)
[2021-01-26] MEDS ORDERED: FERRIC GLUCONATE 125 MG in SODIUM CHLORIDE 0.9% 100ML 100 ML IV ONE ×2 (10:00→12:00)
[2021-01-26] MEDS: PANTOPRAZOLE 40 MG VIAL IV SCH ×2 (10:55→21:11)
--- NOTE | 2021-01-26 13:01 | SURGERY HX AND PHYSICAL(T) ---
Surgical History & Physical - Chief Complaint/HPI Chief Complaint: Dysphagia and Anemia History of Present Illness: 46-year-old female presenting for dysphagia and anemia. Recurrent difficulty swallowing with necessary upper endoscopy historically. Progressive dysphagia recently. Notable past surgical history to include laparoscopic bariatric surgery with necessary urgent reexploratory laparotomy. Patient report change in bowel function, questionable bleeding per rectum, and also denies reflux associated symptoms. No history of heart attack or stroke. Patient takes no systemic anticoagulation. Endoscopic history includes never. - PMH/PSH/Social Hx Does the pt have a hx of MRSA?: No Neurological History: None Eyes, Ears, Nose, Throat: None Cardiovascular: Murmur (She had this from , and is followed by carton filling machine operator in [place] once a year) Respiratory: None Skin: None Endocrine/Autoimmune: None Gastrointestinal: Other (History of gastric bypass surgery) ALTERATIONS SEWER: None Urinary: None Musculoskeletal: None Blood Disorders: None Psychiatric: None General: Gastric surgery (gastric bypass 2004), EGD (as child with removal of food bolus foreign body) Eyes Ears Nose Throat (EENT): Myringotomy (tubes), Tonsil/Adenoidectomy Smoking Status: Never smoker Does the pt drink ETOH?: No Does the pt have substance abuse?: No - Home Meds and Allergies Home Medications: No Known Home Medications 02/09/19 Allergies/Adverse Reactions: Allergies Allergy/AdvReac Type Severity Reaction Status Date / Time No Known Drug Allergies Allergy Verified 01/25/21 19:51 - Review of Systems Constitutional: Malaise Gastrointestinal: Nausea, Difficulty swallowing, Constipation - Vital Signs Heart Rate: 87 Blood Pressure: 118/93 Temperature: 36.7 C Respiratory Rate: 18 O2 Saturation: 100 Weight (kg): 84 kg Height: 1.5 m - Physical Exam Comments/Other: General Appearance: positive: No acute distress Eyes Bilateral: positive: Normal inspection ENT: positive: ENT inspection nml Neck: positive: Nml inspection Respiratory: positive: Chest non-tender, No respiratory distress, Breath sounds nml. negative: Wheezes, Rales, Rhonchi Cardiovascular: positive: Regular rate & rhythm Abdomen: positive: No distention, Other. negative: Guarding, Rebound Extremities: positive: Non-tender, Full ROM, Nml appearance Neurologic/Psychiatric: positive: Oriented x3, CN's nml (2-12) Abdominal Exam: Inspection - Erythema none; Scars well-healed midline scar Auscultation -normoactive bowel sounds Palpation - Hernias large periumbilical hernia; Fluctuance none; Induration none; Scar N/A - Patient Review Patient Review: Problems were reviewed with the patient during this visit. Medications were reviewed with the patient during this visit. Allergies were reviewed this patient during this visit. Pertinent Tests Reviewed: All pertitent test for this patient were reviewed. - Assessment & Plan Assessment and Plan: 46-year-old female with history of laparoscopic bariatric surgery approximately 15 years prior complicated by necessary reexploratory laparotomy. Subsequent hernia. Presents with dysphagia and difficulty swallowing. Denies pain. Also anemic with positive Hemoccult. Would defer bowel prep at this time given concerns for intolerance of liquids absent esophageal clearance. See CT imaging per below. 1. Care per hospitalist service 2. Trend H&H and transfuse appropriately given the patient's history of cardiac disease 3. Telemetry and close hemodynamic monitoring 4. Plan upper endoscopy to evaluate source, which is most likely given the patient's history of bariatric surgery and the risk of marginal ulceration. 5. Aggressive resuscitation. After upper endoscopy can consider bowel prep in anticipation of colonoscopy as per below tomorrow. 6. As is always the case, diagnostic endoscopy with potential for therapeutic interventions. Given limitations, surgical interventions and/or transfer for advanced gastrointestinal interventions and/or interventional radiographic interventions remain part of this complex algorithm. 7. Bowel rest and bowel prep in anticipation of colonoscopy 8. PPI infusion and consider Carafate pending results CT abdomen pelvis impression: 1. No sign of esophageal dilated Tatian or mass. No sign of esophageal stricture but please note that the study is optimized for abdomen pelvis evaluation of the chest. Dedicated esophagram is recommended if clinically indicated. 2. Relatively large midline periumbilical eventration containing large and small bowel without evidence of incarceration or strangulation. The presence of eventration includes the peritoneal membrane covering the area of concern. And this does not represent a true hernia with visceral herniation into the body wall fat 3. Bilateral moderate and moderately large ovarian adnexal cystic masses. Suspect that these likely are benign by appearance but pelvic ultrasound to assess for further characterization of the structures was recommended. There is no evidence ovarian torsion based on the study
--- NOTE | 2021-01-26 13:07 | ANESTHESIA ---
Pre-Anesthesia VS, & Labs - Diagnosis Anemia, abdominal pain - Procedure EGD with biopsies Vital Signs: Temp Pulse Resp BP Pulse Ox 36.7 C 87 18 118/93 H 100 01/26/21 13:04 01/26/21 13:04 01/26/21 13:04 01/26/21 13:04 01/26/21 13:04 Height: 4 ft 11 in Weight (kg): 84 kg Body Mass Index: 37.3 BMI Classification: Obese - NPO >8 hours - Is Patient ?: No - Lab Results Current Lab Results: Laboratory Tests 01/26/21 04:36: Vitamin B12 174 L, Folate 15.13 01/26/21 04:36: Sodium 139, Potassium 3.7, Chloride 107, Carbon Dioxide 25, Anion Gap 7.0, BUN 6, Creatinine 0.4, Estimated GFR (MDRD) 170, Glucose 98, Calcium 8.2 L, Magnesium 1.9, Iron 22 L, TIBC 487 H, % Saturation 5 L, Transferrin 348 01/26/21 04:36: WBC 5.4, RBC 3.28 L, Hgb 7.7 L, Hct 26.5 L, MCV 80.8 L, MCH 23.5 L, MCHC 29.1 L, RDW 20.4 H, Plt Count 195, MPV 10.8 01/25/21 21:15: PT 12.5, INR 1.1 01/25/21 20:05: Sodium 135, Potassium 3.8, Chloride 101, Carbon Dioxide 25, Anion Gap 9.0, BUN 8, Creatinine 0.4, Estimated GFR (MDRD) 170, Glucose 99, Calcium 8.4 L, Total Bilirubin 1.1 H, AST 21, ALT 12, Alkaline Phosphatase 63, Total Protein 7.2, Albumin 3.9, Globulin 3.3, Albumin/Globulin Ratio 1.2, Lipase 20 L 01/25/21 20:05: WBC 5.9, RBC 3.28 L, Hgb 7.7 L, Hct 26.2 L, MCV 79.9 L, MCH 23.5 L, MCHC 29.4 L, RDW 20.2 H, Plt Count 176, MPV 10.0, Neut # (Auto) 4.0, Lymph # (Auto) 1.1 L, Antelope # (Auto) 0.6, Eos # (Auto) 0.1, Baso # (Auto) 0.1, Absolute Nucleated RBC 0.00, Nucleated RBC % 0.0 Lab results reviewed: Yes Fish Bones: 01/26/21 04:36 01/26/21 04:36 Home Medications and Allergies Active Medications Hydromorphone HCl (Hydromorphone 0.5 Mg/0.5 Ml Syringe) 0.5 mg IVP Q6H PRN PRN Reason: Pain 8 to 10 Potassium Chloride/Dextrose/Sod Cl (D5ns W/20 Meq Kcl) 1,000 mls @ 100 mls/hr IV .Q10H [facility] Last Admin: 01/26/21 08:30 Dose: 100 mls/hr Documented by: Ondansetron HCl (Ondansetron 4 Mg/2 Ml Vial) 4 mg IVP Q6HR PRN PRN Reason: Nausea / Vomiting Pantoprazole Sodium (Pantoprazole 40 Mg Vial) 40 mg IV BID [facility] Last Admin: 01/26/21 10:55 Dose: 40 mg Documented by: Prochlorperazine Edisylate (Prochlorperazine 10 Mg/2 Ml Vial) 10 mg IVP Q6HR PRN PRN Reason: Nausea / Vomiting Sodium Chloride (Sodium Chloride Flush 0.9% 10 Ml Syringe) 10 ml IVP PRN PRN PRN Reason: NEEDED PER PROVIDER ORDERS Sodium Chloride (Sodium Chloride Flush 0.9% 10 Ml Syringe) 10 ml IVP 0100,0900,1700 [facility] Last Admin: 01/26/21 08:36 Dose: 10 ml Documented by: No Known Home Medications 02/09/19 Allergies/Adverse Reactions: Allergies Allergy/AdvReac Type Severity Reaction Status Date / Time No Known Drug Allergies Allergy Verified 01/25/21 19:51 Anes History & Medical History - Anesthetic History Anesthesia Complications: reports: No previous complications - Medical History Cardiovascular: reports: Murmur (She had this from , and is followed by primary products inspectors in [place] once a year) Pulmonary: reports: None Gastrointestinal: reports: Other (History of gastric bypass surgery) Urinary: reports: None Neuro: reports: None Musculoskeletal: reports: None Endocrine/Autoimmune: reports: None Blood Disorders: reports: None Skin: reports: None Smoking Status: Never smoker Psychosocial: reports: No issues indicated History of Cancer?: No - Surgical History General: reports: Gastric surgery (gastric bypass 2004), EGD (as child with removal of food bolus foreign body) Eyes Ears Nose Throat (EENT): reports: Myringotomy (tubes), Tonsil/Adenoidectomy Gynecologic: reports: section Exam General: Alert, Oriented x3, Cooperative, No acute distress Dental: Other (endentulous) Mouth Openin Fingerbreadth Neck Mobility: Normal Mallampati classification: II Thyromental Distance: 4-6 cm Respiratory: Lungs clear, Normal breath sounds, No respiratory distress, No accessory muscle use Cardiovascular: Other (systolic murmur) Mental/Cognitive Status: Alert/Oriented X3, Normal for patient Plan Anesthesia Type: Total IV Consent for Procedure(s) Verified and Reviewed: Yes Code Status: Attempt Resuscitation ASA classification: 3-Severe systemic disease Is this case an emergency?: Yes
[2021-01-26] MEDS ORDERED: LIDOCAINE-MPF 2% 5 ML VIAL ONE (13:11)
[2021-01-26] MEDS ORDERED: PROPOFOL 200 MG/20 ML VIAL IVP ONE ×4 (13:11→14:29)
[2021-01-26] MEDS ORDERED: MIDAZOLAM 2 MG/2 ML VIAL ONE ×2 (13:11→14:24)
[2021-01-26] MEDS ORDERED: fentaNYL 100 MCG/2 ML VIAL ONE (13:11)
[2021-01-26] MEDS ORDERED: SUCCINYLCHOLINE 200 MG/10 ML VIAL ONE (13:34)
[2021-01-26] MEDS ORDERED: ROCURONIUM 50 MG/5 ML VIAL ONE (14:11)
[2021-01-26] MEDS ORDERED: DEXAMETHASONE 10 MG/ML VIAL ONE ×2 (14:26)
--- NOTE | 2021-01-26 14:31 | PROVIDER PROGRESS NOTE ---
Progress Note 46-year-old female with history of remote laparoscopic Mary-en-Y gastric bypass urgently revised during reexploratory laparotomy who presents with recurrent dysphagia and suspected retained food bolus. She had no worsening pain, however upper endoscopy was indicated secondary to historic stenosis from prior endoscopic evaluation. EGD findings were as follows: 1. Large retained fibrous material within the mid to distal esophagus consistent with poultry. This was friable and unable to be retrieved intact with either 4 pronged forceps and/or Demarco net. Given this concerning feature we opted to proceed with endotracheal intubation given the associated risk of aspiration and the need to protect the airway in the setting of this uniquely risk written foreign body. 2. Patient was thereafter intubated without complication. We proceeded to remove the foreign body/food bolus piecemeal with the Demarco net taking care to avoid any residual particulates within the oropharynx. In spite of this and given the size of the food bolus which was significant, there was some noted material within the oropharynx that needed to be addressed laryngoscopically. See below. 3. After clearing the esophagus from the bulk of the food bolus, we evaluated the distal esophagus which was without any significant stricturing or stenosis. We entered the neostomach and noted the gastro jejunostomy which was widely patent and without any significant inflammatory changes. We proceeded to intubate the gastrojejunostomy and although able to proceed for approximately 40 cm we discontinued further evaluation and achievement of the jejunojejunostomy secondary to what was suspected as a vagal response with a brief period of asystole. Biopsies taken from the jejunostomy. 4. We took biopsies of the gastrojejunostomy cold forceps. Hemostatic. 5. No diffuse gastritis or gastropathy. No polyps. No ulcerations. 6. GE junction with mild inflammatory changes and irregular Z-line. Biopsied. 7. Distal esophageal biopsies above the Z-line to rule out metaplasia. 8. Thereafter with video laryngoscope we proceeded to remove using endoscopic flexible forceps and Demarco net any residual particulate matter from the retained food bolus from around the endotracheal tube and upper airway in an attempt to reduce any risk of aspiration event. 9. Anesthesia proceeded to perform bronchoscopy through the endotracheal tube which was without any concern for foreign material fluid or otherwise within the trachea or at the level of the cadence or down either mainstem bronchus. 10. Again another look was made endoscopically with no retained foreign material in the entirety of the esophagus and the oropharynx by esophagoscopy flexible or by laryngoscopy. 11. Given the extent of the airway inflammation, and concerning for risk of reintubation secondary to spasm amongst others, we opted to leave the patient intubated and plan for extubation in the ICU. This was discussed with the hospital service as well. Plan going forward is as follows: 1. Continue PPI, continue n.p.o. and bowel rest. 2. Patient will benefit from bowel prep to perform colonoscopy we can perform this through nasogastric tube however would defer until after extubation 3. No definitive upper gastrointestinal source of gastrointestinal hemorrhage however the jejunojejunostomy was not evaluated 4. Dysphagia should be evaluated by speech and swallow and patient should not be advanced beyond a dysphagia mechanical soft diet 5. ICU care and management per hospital service.
[2021-01-26] MEDS ORDERED: PROPOFOL 500 MG/50 ML 500 MG/50 ML VIAL IV SCH (15:00)
[2021-01-26] MEDS: PROPOFOL 500 MG/50 ML 500 MG/50 ML VIAL IV SCH ×5 (15:15→23:45)
--- NOTE | 2021-01-26 15:15 | CONSULTATION NOTE ---
Consultation Report: Please see anesthesia record. With initial pass of EGD, a large food bolus was present in the esophagus. Patient was promptly intubated and procedure was resumed after the airway was secured. At completion of EGD it was noticed there was a large amount of food bolus around the ETT at the glottic opening. A #3 glidescope was used to put the glottic image into view while the surgeon used various endoscopic tools to remove all the foreign material. Images were saved after all material was removed. A FOB was passed down the ETT and no foreign material was observed in the tube or airway. The glottic opening was red and edematous so after consultation with surgeon and hospitalist, it was decided to leave patient intubated due to potential airway swelling. 10mg of decadron was given IV and patient was transferred to OR 3 while awaiting an ICU bed.
--- NOTE | 2021-01-26 15:15 | PROVIDER PROGRESS NOTE ---
Assessment/Plan - Problem List (1) Distal esophageal obstruction due to foreign body Assessment/Plan: During EGD today, large retained fibrous material was noted within the mid to distal esophagus consistent with poultry The patient was at risk of aspiration thus intubated to protect the airway. Foreign body/food bolus was removed piecemeal. Some material was noted within the oropharynx which was addressed laryngoscopically Biopsy were taken at the time of EGD. Continue to maintain patient n.p.o. with bowel rest. Continue Protonix. Patient will be kept intubated overnight and extubated in the morning. Will initiate bowel prep after extubation We will order speech therapy eval for dysphagia. (2) N&V (nausea and vomiting) Assessment/Plan: Likely related to large retained fibrous material within the mid to distal esophagus consistent with poultry. This was removed piecemeal during EGD. Anticipating improvement in patient's nausea and vomiting. Patient is n.p.o. Zofran as needed for nausea and vomiting. (3) Odynophagia Assessment/Plan: Likely secondary to large retained fibrous material within the mid to distal esophagus consistent with poultry. Patient underwent EGD and foreign body/food bolus was removed piecemeal. Biopsies were taken during EGD Continue to maintain patient n.p.o. with bowel rest. Continue Protonix. Patient will be kept intubated overnight and extubated in the morning. Will initiate bowel prep after extubation We will order speech therapy eval for dysphagia. (4) Anemia Qualifiers: Anemia type: unspecified type Qualified Code(s): D64.9 - Anemia, unspecified Assessment/Plan: Hemoglobin 7.7. Etiology undetermined. Continue to maintain patient n.p.o. with bowel rest. Continue Protonix. Patient will be kept intubated overnight and extubated in the morning. 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 She does not know the exact diagnosis of her murmur unfortunately. She gets echoes every year, she states the last was done just 7 months ago in May 2020 and everything is stable. There is no indication for obtaining an Echocardiogram at this time. (6) History of gastric bypass Assessment/Plan: Neostomach was visualized during EGD today and gastrojejunostomy was noted to be widely patent and without any significant inflammatory changes. (7) Acute respiratory failure Assessment/Plan: Secondary to inflammatory airway and aspiration during EGD Patient was intubated in the cause of an EGD. She was given a dose of Decadron for inflamation. Patient was transferred to the ICU after the procedure intubated and sedated on propofol. We will wean to extubate in the morning. - Current Meds Current Meds: Current Medications Generic Name Dose Route Start Last Admin Trade Name Freq PRN Reason Stop Dose Admin Potassium Chloride/Dextrose/Sod Cl 1,000 mls @ 100 mls/hr 01/25/21 22:00 01/26/21 11:45 D5ns W/20 Meq Kcl IV 0 mls/hr .Q10H [facility] Infusion Pantoprazole Sodium 40 mg 01/25/21 22:00 01/26/21 10:55 Pantoprazole 40 Mg Vial IV 40 mg BID [facility] Administration Sodium Chloride 10 ml 01/26/21 01:00 01/26/21 08:36 Sodium Chloride Flush 0.9% 10 Ml Syringe IVP 10 ml 0100,0900,1700 [facility] Administration - Lab Result Fish Bone Diagrams: 01/26/21 04:36 01/26/21 04:36 Subjective - Subjective Patient Reports: Other (Returned from PACU s/p EGD intubated. Currently sedated and intubated due to risk of aspiration. Larged retained fibrous material in mid to distal esophagus consistent with poultry) Objective Vital Signs: Vital Signs - 24 hr 01/25/21 01/25/21 01/25/21 19:48 20:21 22:11 Temperature 36.9 C 36.8 C 36.8 C Heart Rate 90 79 Heart Rate [ 87 Brachial] Respiratory 18 16 16 Rate Blood Pressure 143/70 H 118/93 H Blood Pressure 109/56 L [Left Brachial artery] Blood Pressure [Right Brachial artery] O2 Saturation 100 98 100 01/25/21 01/25/21 01/26/21 22:44 23:59 04:28 Temperature 36.8 C 36.9 C 36.9 C Heart Rate 87 Heart Rate [ 80 83 Brachial] Respiratory 16 19 18 Rate Blood Pressure Blood Pressure [Left Brachial artery] Blood Pressure 109/58 L 131/73 H [Right Brachial artery] O2 Saturation 100 100 99 01/26/21 01/26/21 01/26/21 08:13 11:40 13:04 Temperature 37.0 C 36.7 C 36.7 C Heart Rate 87 Heart Rate [ 74 68 Brachial] Respiratory 18 18 18 Rate Blood Pressure 118/93 H Blood Pressure [Left Brachial artery] Blood Pressure 119/76 147/72 H [Right Brachial artery] O2 Saturation 100 100 100 Oxygen O2 Source Room air I&O (Last 24 Hrs): Intake and Output Totals x24h 01/24/21 01/25/21 01/26/21 23:59 23:59 23:59 Intake Total 1000.00 1388.333 Balance 1000.00 1388.333 General: Other (Sedated and intubated) HEENT: PERRLA, EOMI Neck: Supple, No JVD Neuro: Other (Sedated and intubated) Cardiovascular: Regular rate, Other (3/6 blowing systolic murmur) Respiratory: Chest non-tender, No respiratory distress, Breath sounds nml Abdomen: Normal bowel sounds, Soft, No tenderness Extremities: No clubbing, No cyanosis, No edema, No tenderness/swelling - Results Results: Laboratory Results WBC 5.4 x10^3/uL (4.8-10.8) 01/26/21 04:36 RBC 3.28 10^6/uL (4.20-5.40) L 01/26/21 04:36 Hgb 7.7 g/dL (12.0-16.0) L 01/26/21 04:36 Hct 26.5 % (37.0-47.0) L 01/26/21 04:36 MCV 80.8 fL (81.0-99.0) L 01/26/21 04:36 MCH 23.5 pg (27.0-31.0) L 01/26/21 04:36 MCHC 29.1 g/dL (32.0-36.0) L 01/26/21 04:36 RDW 20.4 % (12.0-15.0) H 01/26/21 04:36 Plt Count 195 10^3/uL (130-450) 01/26/21 04:36 MPV 10.8 fL (7.9-10.8) 01/26/21 04:36 Neut # (Auto) 4.0 10^3/uL (1.5-6.6) 01/25/21 20:05 Lymph # (Auto) 1.1 10^3/uL (1.5-3.5) L 01/25/21 20:05 Gregory # (Auto) 0.6 10^3/uL (0.0-1.0) 01/25/21 20:05 Eos # (Auto) 0.1 10^3/uL (0.0-0.7) 01/25/21 20:05 Baso # (Auto) 0.1 10^3/uL (0.0-0.1) 01/25/21 20:05 Absolute Nucleated RBC 0.00 x10^3/uL 01/25/21 20:05 Nucleated RBC % 0.0 /100WBC 01/25/21 20:05 PT 12.5 secs (9.9-12.6) 01/25/21 21:15 INR 1.1 (0.8-1.2) 01/25/21 21:15 Sodium 139 mmol/L (135-145) 01/26/21 04:36 Potassium 3.7 mmol/L (3.5-5.0) 01/26/21 04:36 Chloride 107 mmol/L (101-111) 01/26/21 04:36 Carbon Dioxide 25 mmol/L (21-32) 01/26/21 04:36 Anion Gap 7.0 (6-13) 01/26/21 04:36 BUN 6 mg/dL (6-20) 01/26/21 04:36 Creatinine 0.4 mg/dL (0.4-1.0) 01/26/21 04:36 Estimated GFR (MDRD) 170 (>89) 01/26/21 04:36 Glucose 98 mg/dL (70-100) 01/26/21 04:36 Calcium 8.2 mg/dL (8.5-10.3) L 01/26/21 04:36 Magnesium 1.9 mg/dL (1.7-2.8) 01/26/21 04:36 Iron 22 ug/dL (28-170) L 01/26/21 04:36 TIBC 487 ug/dL (250-450) H 01/26/21 04:36 % Saturation 5 % (20-50) L 01/26/21 04:36 Transferrin 348 mg/dL (192-382) 01/26/21 04:36 Total Bilirubin 1.1 mg/dL (0.2-1.0) H 01/25/21 20:05 AST 21 IU/L (10-42) 01/25/21 20:05 ALT 12 IU/L (10-60) 01/25/21 20:05 Alkaline Phosphatase 63 IU/L (42-121) 01/25/21 20:05 Total Protein 7.2 g/dL (6.7-8.2) 01/25/21 20:05 Albumin 3.9 g/dL (3.2-5.5) 01/25/21 20:05 Globulin 3.3 g/dL (2.1-4.2) 01/25/21 20:05 Albumin/Globulin Ratio 1.2 (1.0-2.2) 01/25/21 20:05 Lipase 20 U/L (22-51) L 01/25/21 20:05 Vitamin B12 174 pg/mL (180-914) L 01/26/21 04:36 Folate 15.13 ng/mL (5.90 - >24.8) 01/26/21 04:36 Urine Color YELLOW 01/25/21 19:54 Urine Clarity HAZY (CLEAR) 01/25/21 19:54 Urine pH 6.0 PH (5.0-7.5) 01/25/21 19:54 Ur Specific [place] >=1.030 (1.002-1.030) H 01/25/21 19:54 Urine Protein NEGATIVE mg/dL (NEGATIVE) 01/25/21 19:54 Urine Glucose (UA) NEGATIVE mg/dL (NEGATIVE) 01/25/21 19:54 Urine Ketones >=80 mg/dL (NEGATIVE) H 01/25/21 19:54 Urine Occult Blood SMALL (NEGATIVE) H 01/25/21 19:54 Urine Nitrite NEGATIVE (NEGATIVE) 01/25/21 19:54 Urine Bilirubin NEGATIVE (NEGATIVE) 01/25/21 19:54 Urine Urobilinogen 1 (NORMAL) E.U./dL (NORMAL) 01/25/21 19:54 Ur Leukocyte Esterase NEGATIVE (NEGATIVE) 01/25/21 19:54 Urine RBC 0-5 /HPF (0-5) 01/25/21 19:54 Urine WBC 0-3 /HPF (0-5) 01/25/21 19:54 Ur Squamous Epith Cells MOD Squamous (<= Few) H 01/25/21 19:54 Urine Bacteria Few /HPF (None Seen) 01/25/21 19:54 Urine Mucus Few Strands 01/25/21 19:54 Ur Microscopic Review INDICATED 01/25/21 19:54 Urine Culture Comments NOT INDICATED 01/25/21 19:54 Nasal Adenovirus (PCR) NOT DETECTED 01/25/21 21:16 Nasal B. parapertussis DNA (PCR) NOT DETECTED 01/25/21 21:16 Nasal Coronavir 229E PCR NOT DETECTED 01/25/21 21:16 Nasal Coronavir HKU1 PCR NOT DETECTED 01/25/21 21:16 Nasal Coronavir NL63 PCR NOT DETECTED 01/25/21 21:16 Nasal Coronavir OC43 PCR NOT DETECTED 01/25/21 21:16 Nasal Enterovir/Rhinovir PCR NOT DETECTED 01/25/21 21:16 Nasal Influenza B PCR NOT DETECTED 01/25/21 21:16 Nasal Influenza A PCR NOT DETECTED 01/25/21 21:16 Nasal Parainfluen 1 PCR NOT DETECTED 01/25/21 21:16 Nasal Parainfluen 2 PCR NOT DETECTED 01/25/21 21:16 Nasal Parainfluen 3 PCR NOT DETECTED 01/25/21 21:16 Nasal Parainfluen 4 PCR NOT DETECTED 01/25/21 21:16 Nasal RSV (PCR) NOT DETECTED 01/25/21 21:16 Nasal B.pertussis DNA PCR NOT DETECTED 01/25/21 21:16 Nasal C.pneumoniae (PCR) NOT DETECTED 01/25/21 21:16 [place]ton Human Metapneumo PCR NOT DETECTED 01/25/21 21:16 Nasal M.pneumoniae (PCR) NOT DETECTED 01/25/21 21:16 Nasal SARS-CoV-2 (PCR) NOT DETECTED 01/25/21 21:16 - Procedures Procedures: Procedures EXCISION OF LOWER ESOPHAGUS, ENDO, DIAGN (02/08/19) ABX Reporting Has patient been on IV antibiotics over the past 48 hours?: No
--- NOTE | 2021-01-26 15:54 | XRAY Report ---
PROCEDURE: Chest for Line Placement INDICATIONS: EVALUATE POST EGD EVALUATE ET TUBE TECHNIQUE: One view of the chest was acquired. COMPARISON: 07/12/2013 plain films FINDINGS: Surgical changes and devices: ETT is present, tip of which is roughly 4 cm above the cadence. Lungs and pleura: No pleural effusions or pneumothorax. Mild diffuse bilateral perihilar and left ba silar reticulonodular opacity. Mediastinum: Mediastinal contours appear normal. Heart size is normal. Bones and chest wall: No suspicious bony lesions. Overlying soft tissues appear unremarkable. IMPRESSION: 1. Mild bilateral pneumonia. Reviewed by: Rodolfo Noonan MD on 01/26/2021 3:53 PM PDT Approved by: Rodolfo Noonan MD on 01/26/2021 3:53 PM PDT Station ID: [id number]
[2021-01-26] MEDS ORDERED: SODIUM CHLORIDE FLUSH 0.9% 10 ML SYRINGE IVP PRN (16:43)
--- NOTE | 2021-01-26 17:06 | ANESTHESIA POST OP EVALUATION ---
Anesthesia Post Eval - Post Anesthesia Eval Vitals: Last Vital Signs Temp 36.7 C 01/26/21 13:04 Pulse 87 01/26/21 13:04 Resp 18 01/26/21 13:04 BP 118/93 H 01/26/21 13:04 Pulse Ox 100 01/26/21 13:04 CV Function Including HR & BP: Stable Pain Control: Satisfactory Nausea & Vomiting: Negative Mental Status: Other (sedated) Respiratory Status: Other (intubated on ventilator) Hydration Status: Satisfactory Anesthesia Complications: Other (see anesthesia consultation)
[2021-01-26] MEDS: DEXTROSE 5%-0.9% NACL 1,000 ML IV SCH (18:18)
[2021-01-26 19:35] LABS: ABG BASE EXCESS 0.7 mmol/L (-2.0-3.0); ABG HCO3 26.1 mmol/L (22.0-26.0); ABG MODE OF VENTILATION SIMV; ABG OXYGEN SATURATION 95 % (94-98); ABG PH 7.38 (7.35-7.45); ABG PO2 77 mmHg (80-100); ABG RESPIRATORY RATE 16 b/min; ABG TCO2 27.5 MMOL/L (21.0-29.0); ALLEN TEST POSITIVE
[2021-01-26 19:36] LABS: ABG PCO2 46 mmHg (34-45)
[2021-01-26] MEDS: NYSTATIN POWDER 15 GM TOP SCH (21:11)
[2021-01-26] MEDS: HYDROmorphone 0.5 MG/0.5 ML SYRINGE IVP PRN (23:06)
[2021-01-26] MEDS ORDERED: MIDAZOLAM 2 MG/2 ML VIAL IVP ONE (23:06)
[2021-01-26] MEDS: SODIUM CHLORIDE FLUSH 0.9% 10 ML SYRINGE IVP PRN (23:07)
[2021-01-26] MEDS ORDERED: MIDAZOLAM 2 MG/2 ML VIAL IVP PRN (23:07)
[2021-01-27] MEDS: PROPOFOL 500 MG/50 ML 500 MG/50 ML VIAL IV SCH ×2 (01:19→03:34)
[2021-01-27] MEDS: DEXTROSE 5%-0.9% NACL 1,000 ML IV SCH (03:35)
[2021-01-27] MEDS: SODIUM CHLORIDE FLUSH 0.9% 10 ML SYRINGE IVP SCH ×3 (03:35→09:15)
[2021-01-27] MEDS: HYDROmorphone 0.5 MG/0.5 ML SYRINGE IVP PRN (04:49)
[2021-01-27] MEDS: SODIUM CHLORIDE FLUSH 0.9% 10 ML SYRINGE IVP PRN (04:53)
[2021-01-27 05:56] LABS: BASOPHILS % (AUTO) 0.3 %; EOSINOPHILS % (AUTO) 0.1 %; HCT - HEMATOCRIT 24.9 % (37.0-47.0); HGB - HEMOGLOBIN 7.3 g/dL (12.0-16.0); LYMPHOCYTES # (AUTO) 0.6 10^3/uL (1.5-3.5); LYMPHOCYTES % (AUTO) 7.7 %; MEAN CORPUSCULAR HEMOGLOBIN 23.6 pg (27.0-31.0); MEAN CORPUSCULAR HGB CONC 29.3 g/dL (32.0-36.0); MEAN CORPUSCULAR VOLUME 80.6 fL (81.0-99.0); MEAN PLATELET VOLUME 10.1 fL (7.9-10.8); MONOCYTES # (AUTO) 0.7 10^3/uL (0.0-1.0); MONOCYTES % (AUTO) 8.3 %; NEUTROPHILS # (AUTO) 6.6 10^3/uL (1.5-6.6); NEUTROPHILS % (AUTO) 83.2 %; PLT - PLATELET COUNT 187 10^3/uL (130-450); RED BLOOD COUNT 3.09 10^6/uL (4.20-5.40); RED CELL DISTRIBUTION WIDTH 20.3 % (12.0-15.0); WHITE BLOOD COUNT 7.9 x10^3/uL (4.8-10.8)
[2021-01-27 06:00] LABS: SLIDE REVIEW? Indicated
[2021-01-27 06:09] LABS: BUN - BLOOD UREA NITROGEN < 5 mg/dL (6-20); CALCIUM 8.2 mg/dL (8.5-10.3); CARBON DIOXIDE - CO2 24 mmol/L (21-32); CHLORIDE 105 mmol/L (101-111); CREATININE 0.4 mg/dL (0.4-1.0); GFR - MDRD 170 (>89); GLUCOSE 131 mg/dL (70-100); POTASSIUM 3.5 mmol/L (3.5-5.0); SODIUM 138 mmol/L (135-145)
[2021-01-27 06:17] LABS: ALBUMIN 3.3 g/dL (3.2-5.5); MAGNESIUM 1.9 mg/dL (1.7-2.8); PHOSPHORUS 4.2 mg/dL (2.5-4.6)
[2021-01-27 06:20] LABS: PLATELET ESTIMATE, MANUAL NORMAL (130-450,000) (NORMAL); PLATELET MORPHOLOGY NORMAL APPEARANCE (NORMAL)
[2021-01-27 06:21] LABS: WBC MORPHOLOGY (MULTIPLE) NORMAL APPEARANCE (NORMAL)
--- NOTE | 2021-01-27 07:54 | PROVIDER PROGRESS NOTE ---
Assessment/Plan - Problem List (4) Anemia Qualifiers: Anemia type: unspecified type Qualified Code(s): D64.9 - Anemia, unspecified - Current Meds Current Meds: Current Medications Generic Name Dose Route Start Last Admin Trade Name Freq PRN Reason Stop Dose Admin Hydromorphone HCl 0.5 mg 01/25/21 21:40 01/27/21 04:49 Hydromorphone 0.5 Mg/0.5 Ml Syringe IVP 0.5 mg Q6H PRN Administration Pain 8 to 10 Dextrose/Sodium Chloride 1,000 mls @ 100 mls/hr 01/26/21 17:00 01/27/21 06:00 D5ns IV 100 mls/hr .Q10H VERNELL Infusion Nystatin 1 applic 01/26/21 21:00 01/26/21 21:11 Nystatin Powder 15 Gm TOP 1 applic BID VERNELL Administration Pantoprazole Sodium 40 mg 01/25/21 22:00 01/26/21 21:11 Pantoprazole 40 Mg Vial IV 40 mg BID VERNELL Administration Sodium Chloride 10 ml 01/25/21 21:40 01/27/21 04:53 Sodium Chloride Flush 0.9% 10 Ml Syringe IVP 10 ml PRN PRN Administration NEEDED PER PROVIDER ORDERS Sodium Chloride 10 ml 01/26/21 01:00 01/27/21 03:35 Sodium Chloride Flush 0.9% 10 Ml Syringe IVP 10 ml 0100,0900,1700 VERNELL Administration Sodium Chloride 10 ml 01/26/21 17:00 01/27/21 03:41 Sodium Chloride Flush 0.9% 10 Ml Syringe IVP 10 ml 0100,0900,1700 VERNELL Administration - Lab Result Fish Bone Diagrams: 01/27/21 05:49 01/27/21 05:49 - Additional Planning My Orders: My Active Orders 01/26/21 16:06 Initial Ventilator Settings [RC] .ONCE 01/26/21 16:43 Sodium Chloride Flush 0.9% [Normal Saline Flush 0.9%] 10 ml IVP PRN PRN 01/26/21 16:44 Daily Weight [RC] 0600 IO [RC] Q1HR Initiate Bowel Care Protocol [RC] QSHIFT Initiate Flu Vaccine Screening [RC] ONCE Initiate ICU Electrolyte Prot. [RC] .protocol Initiate Personal Care Protoco [RC] .protocol Initiate Pneumonia Vaccine Scr [RC] ONCE Code Status [OTHERS] Routine Condition of Patient [OTHERS] Routine 01/26/21 16:54 Ramon Insertion [RC] QSHIFT 01/26/21 16:55 Telemetry- [RC] Q4HR 01/26/21 17:00 Dextrose 5%-0.9% NaCl [D5ns] 1,000 ml IV 100 mls/hr Sodium Chloride Flush 0.9% [Normal Saline Flush 0.9%] 10 ml IVP 0100,0900,1700 01/26/21 19:25 RT - Obtain Arterial Specimen [RC] .ONCE 01/27/21 05:00 CALCIUM, IONIZED ([facility]) [BG] DAILYLAB 01/27/21 08:[address] [ST] Routine 01/27/21 14:00 CBC W/O DIFF (HEMOGRAM) [HEME] Timed 01/28/21 05:00 ALBUMIN [CHEM] DAILYLAB CALCIUM, IONIZED ([facility]) [BG] DAILYLAB MAGNESIUM [CHEM] DAILYLAB PHOSPHORUS [CHEM] DAILYLAB 01/29/21 05:00 ALBUMIN [CHEM] DAILYLAB CALCIUM, IONIZED ([facility]) [BG] DAILYLAB MAGNESIUM [CHEM] DAILYLAB PHOSPHORUS [CHEM] DAILYLAB Objective Vital Signs: Vital Signs - 24 hr 01/26/21 01/26/21 01/26/21 08:13 11:40 13:04 Temperature 37.0 C 36.7 C 36.7 C Heart Rate 87 Heart Rate [ 74 68 Brachial] Heart Rate [ Monitoring electrodes] Respiratory 18 18 18 Rate Blood Pressure 118/93 H Blood Pressure 119/76 147/72 H [Right Brachial artery] O2 Saturation 100 100 100 01/26/21 01/26/21 01/26/21 15:50 17:00 18:00 Temperature Heart Rate 68 Heart Rate [ 62 Brachial] Heart Rate [ 63 Monitoring electrodes] Respiratory 16 18 Rate Blood Pressure Blood Pressure 153/73 H 153/73 H [Right Brachial artery] O2 Saturation 99 97 01/26/21 01/26/21 01/26/21 19:15 19:42 20:00 Temperature Heart Rate 63 Heart Rate [ Brachial] Heart Rate [ 63 63 Monitoring electrodes] Respiratory 16 16 Rate Blood Pressure Blood Pressure 130/74 127/75 [Right Brachial artery] O2 Saturation 97 97 01/26/21 01/26/21 01/26/21 21:00 21:32 22:00 Temperature 36.1 C L 97.4 C H Heart Rate 65 Heart Rate [ Brachial] Heart Rate [ 63 64 Monitoring electrodes] Respiratory 16 16 Rate Blood Pressure Blood Pressure 129/74 130/72 [Right Brachial artery] O2 Saturation 97 97 01/26/21 01/26/21 01/26/21 22:49 23:08 23:28 Temperature 37.1 C Heart Rate 68 Heart Rate [ Brachial] Heart Rate [ 64 Monitoring electrodes] Respiratory 18 Rate Blood Pressure Blood Pressure 130/73 [Right Brachial artery] O2 Saturation 97 01/26/21 01/27/21 01/27/21 23:59 01:00 01:30 Temperature Heart Rate 64 Heart Rate [ Brachial] Heart Rate [ 65 64 Monitoring electrodes] Respiratory 16 16 Rate Blood Pressure Blood Pressure 106/58 L 100/56 L [Right Brachial artery] O2 Saturation 96 97 01/27/21 01/27/21 01/27/21 02:00 03:00 03:14 Temperature Heart Rate 66 Heart Rate [ Brachial] Heart Rate [ 65 64 Monitoring electrodes] Respiratory 16 16 Rate Blood Pressure Blood Pressure 103/59 L 100/60 [Right Brachial artery] O2 Saturation 97 98 01/27/21 01/27/21 01/27/21 03:45 04:00 05:00 Temperature 37.2 C 37.2 C Heart Rate Heart Rate [ Brachial] Heart Rate [ 73 79 Monitoring electrodes] Respiratory 17 24 Rate Blood Pressure Blood Pressure 114/67 107/74 [Right Brachial artery] O2 Saturation 98 99 01/27/21 01/27/21 01/27/21 05:47 06:00 07:00 Temperature Heart Rate 66 Heart Rate [ Brachial] Heart Rate [ 95 81 Monitoring electrodes] Respiratory 13 15 Rate Blood Pressure Blood Pressure 123/76 107/59 L [Right Brachial artery] O2 Saturation 96 100 Oxygen O2 Source [place] I&O (Last 24 Hrs): Intake and Output Totals x24h 01/25/21 01/26/21 01/27/21 23:59 23:59 23:59 Intake Total 1000.00 2176.912 833.776 Output Total 1950 405 Balance 1000.00 226.912 428.776 - Results Results: Laboratory Results WBC 7.9 x10^3/uL (4.8-10.8) 01/27/21 05:49 RBC 3.09 10^6/uL (4.20-5.40) L 01/27/21 05:49 Hgb 7.3 g/dL (12.0-16.0) L 01/27/21 05:49 Hct 24.9 % (37.0-47.0) L 01/27/21 05:49 MCV 80.6 fL (81.0-99.0) L 01/27/21 05:49 MCH 23.6 pg (27.0-31.0) L 01/27/21 05:49 MCHC 29.3 g/dL (32.0-36.0) L 01/27/21 05:49 RDW 20.3 % (12.0-15.0) H 01/27/21 05:49 Plt Count 187 10^3/uL (130-450) 01/27/21 05:49 MPV 10.1 fL (7.9-10.8) 01/27/21 05:49 Neut # (Auto) 6.6 10^3/uL (1.5-6.6) 01/27/21 05:49 Lymph # (Auto) 0.6 10^3/uL (1.5-3.5) L 01/27/21 05:49 [place] # (Auto) 0.7 10^3/uL (0.0-1.0) 01/27/21 05:49 Eos # (Auto) 0.0 10^3/uL (0.0-0.7) 01/27/21 05:49 Baso # (Auto) 0.0 10^3/uL (0.0-0.1) 01/27/21 05:49 Absolute Nucleated RBC 0.00 x10^3/uL 01/27/21 05:49 Nucleated RBC % 0.0 /100WBC 01/27/21 05:49 Manual Slide Review Indicated 01/27/21 05:49 WBC Morphology NORMAL APPEARANCE (NORMAL) 01/27/21 05:49 Platelet Estimate NORMAL (130-450,000) (NORMAL) 01/27/21 05:49 Platelet Morphology NORMAL APPEARANCE (NORMAL) 01/27/21 05:49 RBC Morph Micro Appear 2+ ANISOCYTOSIS (NORMAL) 1+ HYPOCHROMASIA (NORMAL) 01/27/21 05:49 RBC Morph Micro Appear 2+ ANISOCYTOSIS (NORMAL) 1+ HYPOCHROMASIA (NORMAL) 01/27/21 05:49 PT 12.5 secs (9.9-12.6) 01/25/21 21:15 INR 1.1 (0.8-1.2) 01/25/21 21:15 Bld Gas Analysis Time 19301/26/21 19:20 Sample Site LEFT RADIAL 01/26/21 19:20 ABG pH 7.38 (7.35-7.45) 01/26/21 19:20 ABG pCO2 46 mmHg (34-45) H 01/26/21 19:20 ABG pO2 77 mmHg (80-100) L 01/26/21 19:20 ABG HCO3 26.1 mmol/L (22.0-26.0) H 01/26/21 19:20 ABG Total CO2 27.5 MMOL/L (21.0-29.0) 01/26/21 19:20 ABG O2 Saturation 95 % (94-98) 01/26/21 19:20 ABG Base Excess 0.7 mmol/L (-2.0-3.0) 01/26/21 19:20 Jayjay Test POSITIVE 01/26/21 19:20 Respiration Rate 16 b/min 01/26/21 19:20 O2 Delivery Device VENTILATOR 01/26/21 19:20 Vent Mode SIMV 01/26/21 19:20 FiO2 75.00 01/26/21 19:20 Tidal Volume 300 mL 01/26/21 19:20 PEEP 5 cmH2O 01/26/21 19:20 Pressure Support Vent 10 cmH2O 01/26/21 19:20 Sodium 138 mmol/L (135-145) 01/27/21 05:49 Potassium 3.5 mmol/L (3.5-5.0) 01/27/21 05:49 Chloride 105 mmol/L (101-111) 01/27/21 05:49 Carbon Dioxide 24 mmol/L (21-32) 01/27/21 05:49 Anion Gap 9.0 (6-13) 01/27/21 05:49 BUN < 5 mg/dL (6-20) L 01/27/21 05:49 Creatinine 0.4 mg/dL (0.4-1.0) 01/27/21 05:49 Estimated GFR (MDRD) 170 (>89) 01/27/21 05:49 Glucose 131 mg/dL (70-100) H 01/27/21 05:49 POC Whole Bld Glucose 135 mg/dL (70 - 100) H 01/26/21 18:13 Calcium 8.2 mg/dL (8.5-10.3) L 01/27/21 05:49 Phosphorus 4.2 mg/dL (2.5-4.6) 01/27/21 05:49 Magnesium 1.9 mg/dL (1.7-2.8) 01/27/21 05:49 Iron 22 ug/dL (28-170) L 01/26/21 04:36 TIBC 487 ug/dL (250-450) H 01/26/21 04:36 % Saturation 5 % (20-50) L 01/26/21 04:36 Transferrin 348 mg/dL (192-382) 01/26/21 04:36 Total Bilirubin 1.1 mg/dL (0.2-1.0) H 01/25/21 20:05 AST 21 IU/L (10-42) 01/25/21 20:05 ALT 12 IU/L (10-60) 01/25/21 20:05 Alkaline Phosphatase 63 IU/L (42-121) 01/25/21 20:05 Total Protein 7.2 g/dL (6.7-8.2) 01/25/21 20:05 Albumin 3.3 g/dL (3.2-5.5) 01/27/21 05:49 Globulin 3.3 g/dL (2.1-4.2) 01/25/21 20:05 Albumin/Globulin Ratio 1.2 (1.0-2.2) 01/25/21 20:05 Lipase 20 U/L (22-51) L 01/25/21 20:05 Vitamin B12 174 pg/mL (180-914) L 01/26/21 04:36 Folate 15.13 ng/mL (5.90 - >24.8) 01/26/21 04:36 Urine Color YELLOW 01/25/21 19:54 Urine Clarity HAZY (CLEAR) 01/25/21 19:54 Urine pH 6.0 PH (5.0-7.5) 01/25/21 19:54 Ur Specific [place] >=1.030 (1.002-1.030) H 01/25/21 19:54 Urine Protein NEGATIVE mg/dL (NEGATIVE) 01/25/21 19:54 Urine Glucose (UA) NEGATIVE mg/dL (NEGATIVE) 01/25/21 19:54 Urine Ketones >=80 mg/dL (NEGATIVE) H 01/25/21 19:54 Urine Occult Blood SMALL (NEGATIVE) H 01/25/21 19:54 Urine Nitrite NEGATIVE (NEGATIVE) 01/25/21 19:54 Urine Bilirubin NEGATIVE (NEGATIVE) 01/25/21 19:54 Urine Urobilinogen 1 (NORMAL) E.U./dL (NORMAL) 01/25/21 19:54 Ur Leukocyte Esterase NEGATIVE (NEGATIVE) 01/25/21 19:54 Urine RBC 0-5 /HPF (0-5) 01/25/21 19:54 Urine WBC 0-3 /HPF (0-5) 01/25/21 19:54 Ur Squamous Epith Cells MOD Squamous (<= Few) H 01/25/21 19:54 Urine Bacteria Few /HPF (None Seen) 01/25/21 19:54 Urine Mucus Few Strands 01/25/21 19:54 Ur Microscopic Review INDICATED 01/25/21 19:54 Urine Culture Comments NOT INDICATED 01/25/21 19:54 Nasal Adenovirus (PCR) NOT DETECTED 01/25/21 21:16 Nasal B. parapertussis DNA (PCR) NOT DETECTED 01/25/21 21:16 Nasal Coronavir 229E PCR NOT DETECTED 01/25/21 21:16 Nasal Coronavir HKU1 PCR NOT DETECTED 01/25/21 21:16 Nasal Coronavir NL63 PCR NOT DETECTED 01/25/21 21:16 Nasal Coronavir OC43 PCR NOT DETECTED 01/25/21 21:16 Nasal Enterovir/Rhinovir PCR NOT DETECTED 01/25/21 21:16 Nasal Influenza B PCR NOT DETECTED 01/25/21 21:16 Nasal Influenza A PCR NOT DETECTED 01/25/21 21:16 Nasal Parainfluen 1 PCR NOT DETECTED 01/25/21 21:16 Nasal Parainfluen 2 PCR NOT DETECTED 01/25/21 21:16 Nasal Parainfluen 3 PCR NOT DETECTED 01/25/21 21:16 Nasal Parainfluen 4 PCR NOT DETECTED 01/25/21 21:16 Nasal RSV (PCR) NOT DETECTED 01/25/21 21:16 Nasal Screen MRSA (PCR) NEGATIVE (NEGATIVE) 01/26/21 17:20 Nasal B.pertussis DNA PCR NOT DETECTED 01/25/21 21:16 Nasal C.pneumoniae (PCR) NOT DETECTED 01/25/21 21:16 [place] Human Metapneumo PCR NOT DETECTED 01/25/21 21:16 Nasal M.pneumoniae (PCR) NOT DETECTED 01/25/21 21:16 Nasal SARS-CoV-2 (PCR) NOT DETECTED 01/25/21 21:16 - Procedures Procedures: Procedures EXCISION OF LOWER ESOPHAGUS, ENDO, DIAGN (02/08/19)
[2021-01-27] MEDS: PANTOPRAZOLE 40 MG VIAL IV SCH (09:16)
[2021-01-27] MEDS: NYSTATIN POWDER 15 GM TOP SCH (09:17)
--- NOTE | 2021-01-27 14:26 | DISCHARGE SUMMARY ---
"Discharge Summary Admit Date: 01/25/21 Discharge Date: 01/27/21 Discharging Provider: Cal Arellano Code Status: Attempt Resuscitation Condition at Discharge: Stable Discharge Disposition: 01 Home, Self Care - DIAGNOSES Admission Diagnoses: Nausea and vomiting Odynophagia Anemia Cardiac murmur History of gastric bypass Discharge Diagnoses with Status of Each Condition: Distal esophageal obstruction due to foreign body. Acute s/p EGD with extraction of foreign body Nausea and vomiting: Improved/Resolved Odynophagia: 2/2 Esophageal obstruction due to foreign body. Resolved. s/p EGD with extraction of foreign body Anemia: Possibly multifactorial. Patient has not bee taking Vitamins following bariatric surgery. She was educated on this and advised to start doing so by the [employer]. She was given a dose of Iron infusion. She will need to follow up with her PCP to set up outpatient iron infusions. She was also instructed to follow up with General Surgery in the outpatient setting for a colonoscopy Cardiac murmur: Chronic. Known. Yearly echo's. 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 There is also a remote history of having chicken impacted in her esophagus needing retrieval when she was a young child. The patient presents to the emergency room with complaints of 1 day of lower sternal and epigastric pain, nausea and vomiting, she cannot even keep water down. She says the symptoms are like she had in 2019 requiring the EGD. The patient is being admitted to Observation for IV fluids, antiemetics, follow-up of CBC which is showing a marked anemia and to undergo an EGD, and a possible colonoscopy as well. - CONSULTS | PROCEDURES Consultations: General Surgery: EGD done - HOSPITAL COURSE Hospital Course: Patient was admitted, started on IV fluids at 125 mils per hour and made n.p.o. She was also prescribed antiemetics IV as needed. She underwent an EGD the following day. During EGD today, a large retained fibrous material was noted within the mid to distal esophagus consistent with poultry She was at risk of aspiration thus intubated to protect the airway. Foreign body/food bolus was removed piecemeal. Some material was noted within the oropharynx which was addressed laryngoscopically Biopsy were taken at the time of EGD. No sign of bleeding was noted during EGD She was given a dose of decadron for airway inflammation. She was extubated on the morning of 01/27/21. On auscultation of her lungs prior to discharge, she was noted to be rhonchous She was prescribed Augmentin 875/125 mg tab to take 1 tab q12hrs X 7 days if she becomes febrile or develops a greenish/yellowish productive cough. She has been anemic with a hemoglobin between 7.3 and 7.7. This is likely multifactorial. The patient has undergone bariatric surgery in the past. She has not been taking her vitamins since then. Also she has poor absorption of iron as a result of bariatric surgery. She was given a dose of iron in fusion in the hospital. She was counseled by the dietitian to start taking her vitamins. She is to follow-up with her primary care physician for set up for iron infusions in the outpatient setting. She is to follow-up with general surgery in the outpatient setting for colonoscopy. She has been advised to eat small and frequent meals through the course of the day. Also that she should cut her meals into small pieces and to chew well before swallowing. She was seen by speech therapy for swallow evaluation and the above recommendation regarding eating was reiterated. She is being discharged in stable condition. - ALLERGIES Allergies/Adverse Reactions: Allergies Allergy/AdvReac Type Severity Reaction Status Date / Time No Known Drug Allergies Allergy Verified 01/25/21 19:51 - MEDICATIONS Home Medications: Ambulatory Orders Medication Instructions Recorded Confirmed Amox/Clav 875/125 [Augmentin 1 tablet PO Q12H 7 Days #14 tablet 01/27/21 875/125 Tab] - PHYSICAL EXAM AT DISCHARGE General Appearance: positive: No acute distress, Alert Eyes Bilateral: positive: PERRL, EOMI ENT: positive: No signs of dehydration Neck: positive: No JVD, Trachea midline Respiratory: positive: Chest non-tender, No respiratory distress, Rhonchi (mild) Cardiovascular: positive: Regular rate & rhythm, Systolic murmur Abdomen: positive: Non-tender, Nml bowel sounds, No distention. negative: Guarding, Rebound Back: positive: Nml inspection Skin: positive: Color nml, No rash, Warm, Dry Extremities: positive: Non-tender, Full ROM, Nml appearance, No pedal edema Neurologic/Psychiatric: positive: Oriented x3, Mood/affect nml - LABS Result Diagrams: 01/27/21 05:49 01/27/21 05:49 - TIME SPENT Time Spent in Discharge (Minutes): 25"
--- NOTE | 2021-01-27 14:29 | Discharge Plan ---
Discharge Plan Problem Reviewed?: Yes Disposition: 01 Home, Self Care Condition: Stable Prescriptions: Amox/Clav 875/125 [Augmentin 875/125 Tab] 1 tablet PO Q12H 7 Days #14 tablet Diet: Soft Activity Restrictions: Activity as Tolerated Health Concerns: You were admitted on 01/25/21 with complaint of pain with swallowing, nausea and vomiting. Work-up/treatment included a consult from general surgery and subsequent EGD. A large retained fibrous material was noted within the mid to distal esophagus consistent with poultry. This was extracted piecemeal. You were seen by speech therapy for a swallow evaluation. Recommendations upon discharge is that you eat small frequent meals over the course of the day. Also that you should cut your food into small pieces before you eat and that you should chew your food well before swallowing. You were also noted to be anemic with hemoglobin between 7.3 and 7.7. There was no source of bleeding noted on the EGD done. General surgery recommended outpatient follow-up for an outpatient colonoscopy. Concern for possible aspiration and subsequent pneumonia you have been prescribed Augmentin 875/125 mg tablet to take 1 tablet every 12 hours x7 days if you spike a fever and all start having a productive cough. You have a known heart murmur for which you get an echocardiogram every year. I will refer you back to the provider who manages your heart murmur/cardiac problems. The above plan was explained to you. You expressed understanding and are in agreement. You are being discharged in stable condition. Plan of Treatment: You were admitted on 01/25/21 with complaint of pain with swallowing, nausea and vomiting. Work-up/treatment included a consult from general surgery and subsequent EGD. A large retained fibrous material was noted within the mid to distal esophagus consistent with poultry. This was extracted piecemeal. You were seen by speech therapy for a swallow evaluation. Recommendations upon discharge is that you eat small frequent meals over the course of the day. Also that you should cut your food into small pieces before you eat and that you should chew your food well before swallowing. You were also noted to be anemic with hemoglobin between 7.3 and 7.7. There was no source of bleeding noted on the EGD done. General surgery recommended outpatient follow-up for an outpatient colonoscopy. Concern for possible aspiration and subsequent pneumonia you have been prescribed Augmentin 875/125 mg tablet to take 1 tablet every 12 hours x7 days if you spike a fever and all start having a productive cough. You have a known heart murmur for which you get an echocardiogram every year. I will refer you back to the provider who manages your heart murmur/cardiac problems. The above plan was explained to you. You expressed understanding and are in agreement. You are being discharged in stable condition. Care Goals: You were admitted on 01/25/21 with complaint of pain with swallowing, nausea and vomiting. Work-up/treatment included a consult from general surgery and subsequent EGD. A large retained fibrous material was noted within the mid to distal esophagus consistent with poultry. This was extracted piecemeal. You were seen by speech therapy for a swallow evaluation. Recommendations upon discharge is that you eat small frequent meals over the course of the day. Also that you should cut your food into small pieces before you eat and that you should chew your food well before swallowing. You were also noted to be anemic with hemoglobin between 7.3 and 7.7. There was no source of bleeding noted on the EGD done. General surgery recommended outpatient follow-up for an outpatient colonoscopy. Concern for possible aspiration and subsequent pneumonia you have been prescribed Augmentin 875/125 mg tablet to take 1 tablet every 12 hours x7 days if you spike a fever and all start having a productive cough. You have a known heart murmur for which you get an echocardiogram every year. I will refer you back to the provider who manages your heart murmur/cardiac problems. The above plan was explained to you. You expressed understanding and are in agreement. You are being discharged in stable condition. Assessment: You were admitted on 01/25/21 with complaint of pain with swallowing, nausea and vomiting. Work-up/treatment included a consult from general surgery and subsequent EGD. A large retained fibrous material was noted within the mid to distal esophagus consistent with poultry. This was extracted piecemeal. You were seen by speech therapy for a swallow evaluation. Recommendations upon discharge is that you eat small frequent meals over the course of the day. Also that you should cut your food into small pieces before you eat and that you should chew your food well before swallowing. You were also noted to be anemic with hemoglobin between 7.3 and 7.7. There was no source of bleeding noted on the EGD done. General surgery recommended outpatient follow-up for an outpatient colonoscopy. Concern for possible aspiration and subsequent pneumonia you have been prescribed Augmentin 875/125 mg tablet to take 1 tablet every 12 hours x7 days if you spike a fever and all start having a productive cough. You have a known heart murmur for which you get an echocardiogram every year. I will refer you back to the provider who manages your heart murmur/cardiac problems. The above plan was explained to you. You expressed understanding and are in agreement. You are being discharged in stable condition. No Smoking: If you smoke, Please STOP! Call for help.
[2021-01-27 16:32] VITALS: BP 117/65
== END 2021-01-27 16:40 | disposition home or self-care (01) | DRG 391 ==
LOC: ED 19:44 → MS2 21:30 → ICU 01-26 14:28 → OBSVTOIN 01-26 16:43
PROVIDERS: ADMIT Internal Medicine; ATTEND Internal Medicine
PROC: 0DB48ZX Excision of Esophagogastric Junction, Via Natural or Artificial Opening Endoscopic, Diagnostic (ICD-10-PCS; 2021-01-26)
PROC: 0DBA8ZX Excision of Jejunum, Via Natural or Artificial Opening Endoscopic, Diagnostic (ICD-10-PCS; 2021-01-26)
PROC: 0DB38ZX Excision of Lower Esophagus, Via Natural or Artificial Opening Endoscopic, Diagnostic (ICD-10-PCS; 2021-01-26)
PROC: 0DC28ZZ Extirpation of Matter from Middle Esophagus, Via Natural or Artificial Opening Endoscopic (ICD-10-PCS; principal; 2021-01-26 13:00)
DX: K22.2 Esophageal obstruction (principal); J96.00 Acute respiratory failure, unspecified whether with hypoxia or hypercapnia; J95.88 Other intraoperative complications of respiratory system, not elsewhere classified; T18.128A Food in esophagus causing other injury, initial encounter; D64.9 Anemia, unspecified; R01.1 Cardiac murmur, unspecified; Z98.84 Bariatric surgery status; E66.9 Obesity, unspecified; Z68.37 Body mass index [BMI] 37.0-37.9, adult; Z20.822 Contact with and (suspected) exposure to COVID-19
CPT/HCPCS: 0202U; 36415; 36600; 71045; 74177; 80048; 80053; 81001; 82040; 82607; 82746; 82803; 83540; 83690; 83735; 84100; 84466; 85025; 85027; 85610; 87150; 92610; 94002; 94003; 96365; 96366; 96367; 96372; 96375; 96376; 99284; 99285; A9270; J0330; J1170; J2916; Q9967; 81003; 82330; 87086; 88300; 88305

== ENCOUNTER 2022-07-04 08:00 | Outpatient (CLI) | payer MEDICAID ==
[2022-07-04 20:50] LABS: BASOPHILS % (AUTO) 0.4 %; EOSINOPHILS % (AUTO) 0.2 %; HCT - HEMATOCRIT 44.6 % (37.0-47.0); LYMPHOCYTES # (AUTO) 0.6 10^3/uL (1.5-3.5); LYMPHOCYTES % (AUTO) 6.7 %; MEAN CORPUSCULAR HEMOGLOBIN 33.1 pg (27.0-31.0); MEAN CORPUSCULAR HGB CONC 33.6 g/dL (32.0-36.0); MEAN CORPUSCULAR VOLUME 98.5 fL (81.0-99.0); MEAN PLATELET VOLUME 10.1 fL (7.9-10.8); MONOCYTES # (AUTO) 0.5 10^3/uL (0.0-1.0); MONOCYTES % (AUTO) 5.9 %; NEUTROPHILS # (AUTO) 7.8 10^3/uL (1.5-6.6); NEUTROPHILS % (AUTO) 86.6 %; PLT - PLATELET COUNT 257 10^3/uL (130-450); RED BLOOD COUNT 4.53 10^6/uL (4.20-5.40); RED CELL DISTRIBUTION WIDTH 11.9 % (12.0-15.0)
[2022-07-04 21:01] LABS: ALBUMIN 4.2 g/dL (3.2-5.5); ALBUMIN/GLOBULIN RATIO 1.4 (1.0-2.2); ALKALINE PHOSPHATASE 67 IU/L (42-121); ALT ALANINE AMINOTRANSFERASE 16 IU/L (10-60); AST ASPARTATE AMINOTRANSFERASE 17 IU/L (10-42); BILIRUBIN,TOTAL 0.9 mg/dL (0.2-1.0); BUN - BLOOD UREA NITROGEN 9 mg/dL (6-20); CALCIUM 9.2 mg/dL (8.5-10.3); CARBON DIOXIDE - CO2 28 mmol/L (21-32); CHLORIDE 102 mmol/L (101-111); CREATININE 0.4 mg/dL (0.4-1.0); GFR - MDRD 170 (>89); GLUCOSE 113 mg/dL (70-100); LIPASE 31 U/L (22-51); SODIUM 140 mmol/L (135-145); TOTAL PROTEIN 7.2 g/dL (6.7-8.2)
[2022-07-04 21:16] LABS: CRP - C-REACTIVE PROTEIN < 1.0 mg/dL (0-1.0)
== END 2022-07-04 23:59 | disposition home or self-care (01) ==
LOC: LAB.N 08:00
PROVIDERS: ATTEND Registered Nurse
DX: R11.10 Vomiting, unspecified (principal); R10.9 Unspecified abdominal pain
CPT/HCPCS: 36415; 80053; 83690; 85025; 86140